=== PATIENT | female | born 1975 | race Caucasian/White ===

== ENCOUNTER 2016-09-17 23:52 | Emergency (ER) | payer OTHER ==
[~2016-09-17] VITALS: Ht 167.6 cm; Wt 105.6 kg
[2016-09-17 23:56] VITALS: TEMP 36.9; Ht 167.6 cm; Wt 105.6 kg
[2016-09-18 00:50] LABS: BASO % 0.1 %; BASO ABS # 0.01 K/uL (0-0.2); COMPLETE YES; EOS % 1.1 %; HEMATOCRIT 39.8 % (37-47); IG% 0.8 %; LYMPH % 24.8 %; LYMPH ABS # 2.62 K/uL (1.2-3.4); MEAN CELL VOLUME 85.2 fL (80-100); MEAN CORPUSCULAR HEMOGLOBIN 29.3 pg (25-34); MEAN CORPUSCULAR HGB CONC 34.4 g/dl (32-36); MEAN PLATELET VOLUME 10.7 fL (7.4-10.4); MONO % 6.2 %; PLATELET COUNT 194 K/uL (130-400); RED BLOOD COUNT 4.67 M/uL (4.2-5.4); WHITE BLOOD COUNT 10.57 K/uL (4.8-10.8)
--- NOTE | 2016-09-18 02:00 | DIAGNOSTIC IMAGING REPORT ---
ULTRASOUND LIMITED CLINICAL HISTORY: Reportedly 14 weeks . Vaginal bleeding. COMPARISON STUDY: No priors. FINDINGS: Real-time, grayscale, and color Doppler sonography of the fetus and gravid uterus is performed. There is a single live uterine gestation with an estimated heart rate of 155 bpm. The crown-rump length measures 7.32 cm, corresponding to an estimated age of 13 weeks 3 days. The cervix is closed and measures at least 3.6 cm in length. The placenta is anterior. There is hypoechoic nonvascular fluid seen along the posterior/inferior margin of the placenta. The largest pocket measures up to 2.3 cm. The amniotic fluid volume is grossly normal. IMPRESSION: 1. There is a single live intrauterine gestation with estimated age of 13 weeks 3 days by crown-rump length measurement. 2. The placenta is anterior. Hypoechoic nonvascular fluid is seen posterior to the placenta, greatest inferiorly and likely represents age indeterminant subchorionic hemorrhage. There is no echogenic blood to suggest acute abruption. Obstetrical assessment and close follow-up is recommended. Electronically signed by: Andres Lo M.D. 09/18/2016 1:59 AM Dictated Date/Time: 09/18/2016 1:45 AM
[2016-09-18 02:22] LABS: BUN/CREATININE RATIO 12.1 (10-20); CALCIUM 8.6 mg/dl (8.5-10.1); CREATININE 0.52 mg/dl (0.60-1.20); POTASSIUM 3.3 mmol/L (3.5-5.1)
[2016-09-18 02:25] LABS: ALB/GLOB RATIO 0.9 (0.9-2)
--- NOTE | 2016-09-18 02:47 | EMERGENCY ROOM VISIT NOTE ---
History First contact with patient: 23:59 Chief Complaint: ED VAG BLEEDING Stated Complaint: BLOOD-14 WKS History of Present Illness The patient is a 40 year old female who presents to the Emergency Room with complaints of vaginal bleeding. The patient states she is currently 14 weeks . She states that 2 hours ago, she went to the bathroom and noticed blood on the toilet paper. She states it was a small amount of bright red blood. She denies any abdominal pain. The patient has sexual intercourse earlier. She currently sees [facility] CAR DISTRIBUTOR. 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 She has had 2 pregnancies to term. She denies any nausea, vomiting, fevers, urinary symptoms, chest pain or shortness of breath. She denies any history of bleeding disorders. Review of Systems A complete 10 point review of systems was reviewed with the patient with pertinent positives and negatives as per history of present illness. All else were negative. Past Medical/Surgical History Medical Problems: (1) Asthma (2) Bronchitis (3) Pneumonia (4) Stomach problems Surgical Problems: (1) History of cholecystectomy (2) Previous section Family History Cancer Diabetes mellitus Gallbladder disease Heart disease Hypertension Lung disease Seizures Social History Smoking Status: Current Every Day Smoker Alcohol Use: occasionally Drug Use: none Marital Status: single Housing Status: lives with family Occupation Status: employed Allergies Coded Allergies: No Known Allergies (Verified , 09/17/16) Physical Exam Vital Signs Date Time Temp Pulse Resp B/P (MAP) Pulse Ox O2 Delivery O2 Flow Rate FiO2 09/18/16 02:49 71 18 99/63 100 09/18/16 02:34 71 18 99/63 100 Room Air 09/17/16 23:56 36.9 72 20 112/74 97 Room Air Physical Exam VITALS: Vitals are noted on the nurse's note and reviewed by myself. Vital signs stable. GENERAL: This is a 40-year-old female, in no acute distress, nondiaphoretic, well-developed well-nourished. HEART: Regular rate and rhythm without murmurs gallops or rubs. LUNGS: Clear to auscultation bilaterally without wheezes, rales or rhonchi. ABDOMEN: Positive bowel sounds x 4. Soft, nontender to palpation. PELVIC: External genitalia unremarkable. There is a small abrasion within the vaginal vault. No bleeding from the cervical os. NEURO: Patient was alert and oriented to person place and time. Medical Decision & Procedures ER Provider Diagnostic Interpretation: ULTRASOUND LIMITED FINDINGS: Real-time, grayscale, and color Doppler sonography of the fetus and gravid uterus is performed. There is a single live uterine gestation with an estimated heart rate of 155 bpm. The crown-rump length measures 7.32 cm, corresponding to an estimated age of 13 weeks 3 days. The cervix is closed and measures at least 3.6 cm in length. The placenta is anterior. There is hypoechoic nonvascular fluid seen along the posterior/inferior margin of the placenta. The largest pocket measures up to 2.3 cm. The amniotic fluid volume is grossly normal. IMPRESSION: 1. There is a single live intrauterine gestation with estimated age of 13 weeks 3 days by crown-rump length measurement. 2. The placenta is anterior. Hypoechoic nonvascular fluid is seen posterior to the placenta, greatest inferiorly and likely represents age indeterminant subchorionic hemorrhage. There is no echogenic blood to suggest acute abruption. Obstetrical assessment and close follow-up is recommended. Electronically signed by: Andres Lo M.D. Laboratory Results 09/18/16 00:38 Red Blood Count 4.67, Mean Corpuscular Volume 85.2, Mean Corpuscular Hemoglobin 29.3, Mean Corpuscular Hemoglobin Concent 34.4, Mean Platelet Volume 10.7, Neutrophils (%) (Auto) 67.0, Lymphocytes (%) (Auto) 24.8, Monocytes (%) (Auto) 6.2, Eosinophils (%) (Auto) 1.1, Basophils (%) (Auto) 0.1, Neutrophils # (Auto) 7.08, Lymphocytes # (Auto) 2.62, Monocytes # (Auto) 0.66, Eosinophils # (Auto) 0.12, Basophils # (Auto) 0.01 09/18/16 01:52 Test 09/18/16 00:38 09/18/16 01:52 White Blood Count 10.57 K/uL (4.8-10.8) Red Blood Count 4.67 M/uL (4.2-5.4) Hemoglobin 13.7 g/dL (12.0-16.0) Hematocrit 39.8 % (37-47) Mean Corpuscular Volume 85.2 fL (80-100) Mean Corpuscular Hemoglobin 29.3 pg (25-34) Mean Corpuscular Hemoglobin Concent 34.4 g/dl (32-36) Platelet Count 194 K/uL (130-400) Mean Platelet Volume 10.7 fL (7.4-10.4) Neutrophils (%) (Auto) 67.0 % Lymphocytes (%) (Auto) 24.8 % Monocytes (%) (Auto) 6.2 % Eosinophils (%) (Auto) 1.1 % Basophils (%) (Auto) 0.1 % Neutrophils # (Auto) 7.08 K/uL (1.4-6.5) Lymphocytes # (Auto) 2.62 K/uL (1.2-3.4) Monocytes # (Auto) 0.66 K/uL (0.11-0.59) Eosinophils # (Auto) 0.12 K/uL (0-0.5) Basophils # (Auto) 0.01 K/uL (0-0.2) RDW Standard Deviation 43.3 fL (36.4-46.3) RDW Coefficient of Variation 14.0 % (11.5-14.5) Immature Granulocyte % (Auto) 0.8 % Immature Granulocyte # (Auto) 0.08 K/uL (0.00-0.02) Anion Gap 7.0 mmol/L (3-11) Est Creatinine Clear Calc Drug Dose 178.4 ml/min Estimated GFR () 139.5 Estimated GFR (Non- 120.4 BUN/Creatinine Ratio 12.1 (10-20) Calcium Level 8.6 mg/dl (8.5-10.1) Total Bilirubin 0.1 mg/dl (0.2-1) Aspartate Amino Transf (AST/SGOT) 11 U/L (15-37) Alanine Aminotransferase (ALT/SGPT) 18 U/L (12-78) Alkaline Phosphatase 52 U/L (45-117) Total Protein 6.4 gm/dl (6.4-8.2) Albumin 3.0 gm/dl (3.4-5.0) Globulin 3.4 gm/dl (2.5-4.0) Albumin/Globulin Ratio 0.9 (0.9-2) Human Chorionic Gonadotropin, Quant 38126 mIU/mL ED Course The patient was evaluated as above. Labs were drawn and IV access was obtained. Pelvic ultrasound was performed and read by radiology as above. Patient was reevaluated and findings were discussed. Pelvic examination performed at this time. Discharge instructions were reviewed with the patient. The patient verbalized understanding of my assessment and treatment plan and was discharged home in good condition. Medical Decision Differential diagnosis includes vaginal abrasion, spontaneous miscarriage, inevitable miscarriage, placental abruption, among others. The patient is a 40-year-old female who presents today complaining of vaginal bleeding during . Labs revealed a minimal leukocytosis. There is no anemia. Pelvic ultrasound was performed and showed a viable intrauterine with heartbeat. There were findings which are suggestive of an indeterminate subchorionic hemorrhage. There is no significant bleeding or pain to suggest placental abruption. A pelvic ultrasound does show a small vaginal abrasion which is likely the source of the patient's bleeding. She was reassured. She will follow-up with her CAR DISTRIBUTOR this week. She was instructed to return for increased bleeding, pain or any other new/concerning symptoms. The patient's case was reviewed with Dr. Patterson, ED attending physician, who agreed with my assessment and treatment plan. Based on the patient's presentation and work up, I feel the patient is stable for outpatient treatment. The patient was educated to return to the emergency department for any worsening of their current condition or new/concerning symptoms. She will follow up with her CAR DISTRIBUTOR. Medication reconciliation: I attest that I have personally reviewed the patient 's current medication list. Blood pressure screening: Patient was found to have normal blood pressure on screening and does not require follow-up. Impression Primary Impression: Vaginal bleeding in Departure Information Dispostion Home / Self-Care Condition GOOD Referrals Conchita Preciado (PCP) Patient Instructions My [facility] Additional Instructions Pelvic rest: Nothing in the vagina until follow up with CAR DISTRIBUTOR. Call CAR DISTRIBUTOR on Monday to schedule follow-up. Return for worsening bleeding, abdominal pain, vomiting or any other new/ worsening symptoms.
[2016-09-18 02:49] VITALS: BP 99/63; PULSE 71; O2SAT 100
[2016-12-04] MEDS ORDERED: PRENTAB26 PO (13:12)
[2016-12-04] MEDS ORDERED: MTR250 PO (13:12)
== END 2016-09-18 02:50 | disposition home or self-care (01) ==
LOC: C.EDB 23:53
DX: O20.9 Hemorrhage in early pregnancy, unspecified (principal); O99.332 Smoking (tobacco) complicating pregnancy, second trimester; F17.210 Nicotine dependence, cigarettes, uncomplicated; O99.512 Diseases of the respiratory system complicating pregnancy, second trimester; J45.909 Unspecified asthma, uncomplicated; Z3A.14 14 weeks gestation of pregnancy; Z87.01 Personal history of pneumonia (recurrent); Z90.49 Acquired absence of other specified parts of digestive tract; Z80.9 Family history of malignant neoplasm, unspecified; Z83.3 Family history of diabetes mellitus; Z82.49 Family history of ischemic heart disease and other diseases of the circulatory system; Z82.0 Family history of epilepsy and other diseases of the nervous system

== ENCOUNTER 2016-12-04 10:16 | Outpatient (CLI) | payer OTHER ==
[~2016-12-04] VITALS: Ht 167.6 cm; Wt 104.5 kg
[2016-12-04] MEDS ORDERED: ACETAMINOPHEN 325 MG TAB PO PRN (10:45)
[2016-12-04] MEDS ORDERED: ONDANSETRON 4 MG TAB PO PRN (10:45)
[2016-12-04 11:26] LABS: BASO % 0.1 %; BASO ABS # 0.01 K/uL (0-0.2); COMPLETE YES; EOS % 0.9 %; HEMATOCRIT 35.2 % (37-47); LYMPH % 16.3 %; LYMPH ABS # 1.77 K/uL (1.2-3.4); MEAN CELL VOLUME 88.7 fL (80-100); MEAN CORPUSCULAR HEMOGLOBIN 29.5 pg (25-34); MEAN CORPUSCULAR HGB CONC 33.2 g/dl (32-36); MEAN PLATELET VOLUME 10.4 fL (7.4-10.4); MONO % 5.2 %; NEUT % 76.5 %; PLATELET COUNT 192 K/uL (130-400); RED BLOOD COUNT 3.97 M/uL (4.2-5.4); WHITE BLOOD COUNT 10.87 K/uL (4.8-10.8)
[2016-12-04 11:37] LABS: URINE APPEARANCE CLEAR (CLEAR); URINE BILIRUBIN NEG (NEG); URINE COLOR YELLOW; URINE EPITHELIAL CELL AUTO >30 /lpf (0-5); URINE NITRITE NEG (NEG); URINE PH 6.5 (4.5-7.5); URINE SPECIFIC GRAVITY 1.014 (1.000-1.030); UROBILINOGEN NEG (NEG); ZZUR CULT IF INDIC CLEAN CATCH NO
[2016-12-04 11:38] LABS: MANUAL MICROSCOPIC REQUIRED? NO; REVIEW REQ? NO
--- NOTE | 2016-12-04 11:40 | DIAGNOSTIC IMAGING REPORT ---
LIMITED (US) CLINICAL HISTORY: CERVICAL LENGTH, JODY, FHR TECHNIQUE: Ultrasound COMPARISON STUDY: 09/18/2016 FINDINGS: Single, viable intrauterine . Cephalic presentation. Anterior placenta. Amniotic fluid index is 15 cm. Maternal cervical length is 4 cm. heart rate is confirmed at 1 61 bpm. The fluid deep to the placenta on the prior study is no longer appreciated. IMPRESSION: 1. Single, viable intrauterine of approximately 24 weeks 6 days gestational age. 2. Anterior placenta. 3. Maternal cervical length 4 cm. 4. Amniotic fluid index 15 cm. 5. heart rate 161 bpm The above report was generated using voice recognition software. It may contain grammatical, syntax or spelling errors. Electronically signed by: Alek Champagne M.D. 12/04/2016 11:39 AM Dictated Date/Time: 12/04/2016 11:37 AM
[2016-12-04 11:53] VITALS: Ht 167.6 cm; Wt 104.5 kg
[2016-12-04 11:53] LABS: ALT/SGPT 15 U/L (12-78); BLOOD UREA NITROGEN 3 mg/dl (7-18); BUN/CREATININE RATIO 6.3 (10-20); CALCIUM 9.1 mg/dl (8.5-10.1); CARBON DIOXIDE 19 mmol/L (21-32); CHLORIDE 108 mmol/L (98-107); CREATININE 0.54 mg/dl (0.60-1.20); GLUCOSE 103 mg/dl (70-99); POTASSIUM 3.6 mmol/L (3.5-5.1); SODIUM 139 mmol/L (136-145)
[2016-12-04 11:56] LABS: ALB/GLOB RATIO 0.8 (0.9-2); ALKALINE PHOSPHATASE 71 U/L (45-117); AST/SGOT 11 U/L (15-37)
[2016-12-04] MEDS ORDERED: METRONIDAZOLE 250 MG TAB PO SCH ×2 (12:00→13:30)
[2016-12-04] MEDS ORDERED: PRENTAB26 PO (13:12)
[2016-12-04] MEDS ORDERED: MTR250 PO (13:12)
--- NOTE | 2016-12-04 13:15 | Discharge Instructions ---
Discharge Instructions Date of Service Dec 04, 2016. Admission Reason for Admission: Evaluate Vaginal Discharge Discharge Discharge Diagnosis / Problem: BV Discharge Goals Goal(s): Continuing OB care Activity Recommendations Activity Limitations: as noted below ACTIVITY RECOMMENDATIONS: See Labor Sheet. SPECIAL CARE INSTRUCTIONS: Call Doctor if: * Regular contractions every 5 minutes or greater than 5 contractions in one hour. * Bleeding * Water breaks or is leaking * Decreased movement * Fever >100.4 degrees F * Pain not relieved by routine measures or pain medication ordered. FOLLOW UP VISIT: Return to Labor and Delivery on for /call for appointment time . Follow-up Visit with: When: . Current Hospital Diet Patient's current hospital diet: Clear Liquid Diet Discharge Diet Recommended Diet: Regular Diet Pending Studies Studies pending at discharge: yes List of pending studies: Cultures Medical Emergencies . Who to Call and When: Medical Emergencies: If at any time you feel your situation is an emergency, please call 911 immediately. . Non-Emergent Contact Non-Emergency issues call your: Specialist Call Non-Emergent contact if: temperature is above 100.5 . . "Provider Documentation" section prepared by Ray Fish. . VTE Core Measure Inpt VTE Proph given/why not?: Treatment not indicated
[2016-12-04] MEDS ORDERED: ACETAMINOPHEN 325 MG TAB PO SCH ×2 (13:30)
[2016-12-07 00:52] LABS: CHLAMYDIA TRACH RNA*** NOT DETECTED (NOT DETECTED); GC (NEIS GONORRHOEAE)RNA** NOT DETECTED (NOT DETECTED)
== END 2016-12-04 13:50 | disposition home or self-care (01) ==
LOC: C.LD 10:16 → C.OPB 10:16
PROVIDERS: ATTEND Obstetrics & Gynecology
DX: O26.893 Other specified pregnancy related conditions, third trimester (principal); N89.8 Other specified noninflammatory disorders of vagina; O09.523 Supervision of elderly multigravida, third trimester; O99.213 Obesity complicating pregnancy, third trimester; O99.332 Smoking (tobacco) complicating pregnancy, second trimester; Z3A.24 24 weeks gestation of pregnancy

== ENCOUNTER 2017-03-14 05:28 | Inpatient (IN) | payer OTHER ==
[2017-03-01 13:47] VITALS: Ht 167.6 cm; Wt 117.2 kg
--- NOTE | 2017-03-01 14:08 | PAT Medication Instructions ---
Service Date Mar 01, 2017. Current Home Medication List Multivit/Min/Iron/Fol Ac/Pren ( Vitamin), 1 TAB PO DAILY Medication Instructions For Your Scheduled Surgery - Hold the following medications the morning of surgery: Multivit/Min/Iron/Fol Ac/Pren ( Vitamin), 1 TAB PO DAILY If you have any questions please call us at [phone] or [phone] or [phone]
[2017-03-01 15:23] LABS: BASO % 0.1 %; BASO ABS # 0.01 K/uL (0-0.2); EOS % 1.1 %; EOS ABS # 0.12 K/uL (0-0.5); HEMATOCRIT 36.4 % (37-47); IG# 0.12 K/uL (0.00-0.02); LYMPH % 17.7 %; LYMPH ABS # 1.88 K/uL (1.2-3.4); MEAN CELL VOLUME 87.3 fL (80-100); MEAN CORPUSCULAR HEMOGLOBIN 28.8 pg (25-34); MEAN PLATELET VOLUME 10.4 fL (7.4-10.4); MONO % 7.9 %; MONO ABS # 0.84 K/uL (0.11-0.59); NEUT % 72.1 %; NEUT ABS # 7.65 K/uL (1.4-6.5); PLATELET COUNT 190 K/uL (130-400); RED CELL DISTRIBUTION WIDTH SD 47.3 fL (36.4-46.3); WHITE BLOOD COUNT 10.62 K/uL (4.8-10.8)
[2017-03-14] VITALS (15 sets, daily range): BP systolic 86–119; BP diastolic 54–74; PULSE 69–77; TEMP 36.7–37.5; O2SAT 94–98
[~2017-03-14] VITALS: Ht 167.6 cm; Wt 117.2 kg
[~2017-03-14 05:28] MED LIST: PRENTAB26 PO
[2017-03-14] MEDS ORDERED: NURSING VERBAL MED ORDER ONE (05:45)
[2017-03-14 05:58] LABS: BASO % 0.1 %; BASO ABS # 0.01 K/uL (0-0.2); EOS % 0.8 %; EOS ABS # 0.09 K/uL (0-0.5); HEMATOCRIT 37.1 % (37-47); HEMOGLOBIN 12.5 g/dL (12.0-16.0); IG# 0.11 K/uL (0.00-0.02); LYMPH ABS # 1.62 K/uL (1.2-3.4); MEAN CELL VOLUME 87.3 fL (80-100); MEAN CORPUSCULAR HEMOGLOBIN 29.4 pg (25-34); MEAN CORPUSCULAR HGB CONC 33.7 g/dl (32-36); MEAN PLATELET VOLUME 10.2 fL (7.4-10.4); MONO % 4.4 %; MONO ABS # 0.48 K/uL (0.11-0.59); NEUT % 78.7 %; NEUT ABS # 8.52 K/uL (1.4-6.5); PLATELET COUNT 184 K/uL (130-400); RED CELL DISTRIBUTION WIDTH CV 15.4 % (11.5-14.5); WHITE BLOOD COUNT 10.83 K/uL (4.8-10.8)
[2017-03-14] MEDS ORDERED: CEFAZOLIN IV 3,000 MG in SYRINGE 0 ML IV STA (06:08)
[2017-03-14] MEDS ORDERED: CITRIC ACID/SODIUM CITRATE 15 ML UDC PO STA (06:08)
[2017-03-14] MEDS ORDERED: LACTATED RINGER'S 1000ML 1,000 ML IV SCH ×2 (06:15→09:11)
[2017-03-14] MEDS ORDERED: LACTATED RINGER'S 1000ML 1,000 ML IV ONE (06:15)
--- NOTE | 2017-03-14 07:04 | History & Physical Bridge Note ---
H&P Re-Evaluation Bridge Note: I have examined the patient, reviewed the History & Physical and in the interval since the performance of the History & Physical I have noted the following changes of clinical significance: No changes noted
[2017-03-14] MEDS ORDERED: FENTANYL CITRATE INJ 50 MCG/1 ML 2 ML VIAL ONE (07:22)
[2017-03-14] MEDS ORDERED: MORPHINE SULFATE PF 2MG/2ML SYR ONE (07:23)
[2017-03-14] MEDS ORDERED: OXYTOCIN INJ 10 UNITS/ML VIAL ONE ×2 (08:12→09:12)
[2017-03-14] MEDS ORDERED: PHENYLEPHRINE 100MCG/ML 5ML SYR ONE (08:16)
[2017-03-14] MEDS ORDERED: MIDAZOLAM HCL 1 MG/ML 2ML VIAL ONE (08:31)
[2017-03-14] MEDS ORDERED: OXYTOCIN INJ 30 UNITS in LACTATED RINGER'S 1000ML 1,000 ML IV SCH (09:11)
[2017-03-14] MEDS ORDERED: SUPERCREAM 0.870 % 15GM JAR EXT PRN (09:15)
[2017-03-14] MEDS ORDERED: MAGNESIUM HYDROXIDE SUSP 30 ML UDC PO PRN (09:15)
[2017-03-14] MEDS ORDERED: DIPHTHERIA/TETANUS/PERTUSSIS 0.5 ML SYR/VIAL IM. ONE (09:15)
[2017-03-14] MEDS ORDERED: BENZOCAINE 20% AER SPR 82.5 GM CAN EXT PRN (09:15)
[2017-03-14] MEDS ORDERED: HYDROCORTISONE ACETATE 25 MG SUPP PR PRN (09:15)
[2017-03-14] MEDS ORDERED: LANOLIN OINT EXT PRN (09:15)
[2017-03-14] MEDS ORDERED: SENNA 8.6 MG TAB PO PRN (09:15)
[2017-03-14] MEDS ORDERED: NALOXONE HCL INJ 1 MG in SODIUM CHLORIDE 0.9% 1000ML 1,000 ML IV PRN ×4 (09:21)
[2017-03-14] MEDS ORDERED: LACTATED RINGER'S 1000ML 500 ML IV PRN (09:21)
[2017-03-14] MEDS ORDERED: SODIUM CHLORIDE 0.9% 1000ML 1,000 ML IV PRN (09:21)
[2017-03-14] MEDS ORDERED: NALOXONE HCL INJ 0.08 MG in SYRINGE 1.8 ML IV PRN (09:21)
--- NOTE | 2017-03-14 09:26 | [facility] Post Operative Brief Note ---
Immediate Operative Summary Operative Date Mar 14, 2017. Pre-Operative Diagnosis 39 2/7 Weeks Gestation. Previous Caesarean Section. Pt desires Repeat Caesarean Section and Bilateral Tubal Ligation. Post-Operative Diagnosis Same as Preop Procedure(s) Performed Repeat Low Transverse Section with Bilateral Tubal Ligation, Live Female at [address] Reyes [employer] Drill Operator Surgeon(s) Dr. Borja Estimated Blood Loss 700 Findings Patient delivered a viable female in the vertex position via Repeat section at 0821 on 03/14/2017. APGARs and weight pending. Cord blood obtained. An intact placenta with 3 VC delivered at 0822 and sent to pathology. Grossly normal uterus and bilateral tubes and ovaries noted. Bilateral tubal ligation was performed via rhonda technique. Bilateral tubal segments sent to pathology. Both patient and baby tolerated the surgery well and were sent to recovery with stable vital signs. Fluids (cc crystalloids) 1600 Specimens Cord Blood Placenta (Exam) Portions of Left and Right Fallopian Tubes Drains Iqbal to gravity Anesthesia Spinal Complication(s) None Disposition L&D
[2017-03-14] MEDS ORDERED: EpHEDrine SULFATE INJ 50 MG/ML AMP IV PRN (09:30)
[2017-03-14] MEDS ORDERED: NALBUPHINE HCL INJ 10 MG/ML 1ML AMP IV PRN (09:30)
[2017-03-14] MEDS ORDERED: MoRPHine SULFATE PF 1 MG/ML 10 ML AMP/VIAL EPI PRN (09:30)
[2017-03-14] MEDS ORDERED: ONDANSETRON INJ 2 MG/ML 2 ML VIAL IV PRN (09:30)
[2017-03-14] MEDS ORDERED: DiphenhydrAMINE HCL 50 MG/ML VIAL IV PRN (09:30)
[2017-03-14] MEDS ORDERED: NO NARCOTICS OR SEDATIVES SCH (09:30)
[2017-03-14] MEDS ORDERED: PROMETHAZINE HCL INJ 25 MG in SODIUM CHLORIDE 0.9% 50ML 50 ML IV PRN (09:30)
[2017-03-14] MEDS ORDERED: NALOXONE HCL 0.4 MG/1 ML VIAL/CARP IV PRN (09:30)
--- NOTE | 2017-03-14 10:15 | OPERATIVE REPORT ---
DATE OF OPERATION: 03/14/2017 PREOPERATIVE DIAGNOSES: 1. Intrauterine at 39 weeks and 2 days gestation. 2. History of previous section, requesting repeat section. 3. Desires permanent sterilization. POSTOPERATIVE DIAGNOSES: Same. OPERATIVE PROCEDURES: Repeat low transverse section with bilateral tubal ligation. SURGEON: Dr. Reyes. SETUP OPERATOR: Dr. Fish. ANESTHESIA: Spinal. ESTIMATED BLOOD LOSS: 700 mL. IV FLUIDS: 1600 mL crystalloids. URINE OUTPUT: 350 mL clear yellow urine. SPECIMENS: Cord blood, placenta and segments of the left and right fallopian tubes. DRAINS: Iqbal to gravity. COMPLICATIONS: None. DISPOSITION: To labor and delivery. OPERATION AND FINDINGS: OPERATIVE FINDINGS: The patient delivered a viable female infant in the vertex position via repeat low transverse section at 8:21 a.m. on 03/14/2017. Apgars and weight are pending. Cord blood was obtained and intact placenta with 3-vessel cord was delivered at 8:22 and sent to pathology. Grossly normal uterus and bilateral tubes and ovaries noted. Bilateral tubal ligation was performed via Yane technique. Bilateral tubal segments were sent to pathology. Both patient and baby tolerated the surgery well and were sent to recovery with stable vital signs. OPERATIVE PROCEDURE IN DETAIL: The patient was taken to the operating room where her spinal anesthesia was administered. She was immediately placed in dorsal supine position with a left lateral tilt and was prepped and draped in a manner appropriate for the procedure. Once anesthesia was found to be adequate, a Pfannenstiel skin incision was made 2 fingerbreadths above the pubic symphysis and was carried down through to a layer of the rectus fascia. Fascia was nicked in the midline and extended bilaterally with curved Hernández scissors. The superior aspect of the fascial incision was grasped with Celi clamps, elevated, and the rectus muscles were dissected off with the use of the electrocautery and curved Hernández scissors. Likewise, the inferior aspect of the fascial incision was grasped with Celi clamps, elevated, and rectus muscles were dissected off with the use of the curved Hernández scissors. The rectus muscles were in midline. Peritoneum was grasped with hemostats x2 and entered with Metzenbaum scissors. Peritoneal incision was extended cephalocaudally with gentle traction. A Joan retractor was then placed within the abdomen. The vesicouterine peritoneum was identified and a bladder flap was created with Metzenbaum scissors and digital traction. The bladder flap was incorporated beneath the Kolton blade. A transverse incision was then made on the uterus and extended bilaterally with digital traction. Clear amniotic fluid was noted. The head was identified and delivered through the incision along with the rest of the baby. Baby was suctioned at delivery. Cord was clamped x2 and cut. Baby was immediately handed to an awaiting obiee obia solution architect for further evaluation and management. Please see their notes for further baby assessment. Cord blood was then obtained and an intact placenta with 3-vessel cord was delivered through the incision and sent to pathology. The uterus was then exteriorized and wrapped in moist laparotomy sponge. The uterus was then cleared of any trailing membranes and debris with laparotomy sponge. The uterine incision was then grasped with ringed forceps at 4 quadrants, was then closed with 0 Vicryl suture in a continuous locking fashion. A second layer of 0 Vicryl suture was used in imbricating fashion to ensure hemostasis. Any residual bleeding was suture-ligated with 0 Vicryl suture in a [id number] interrupted fashion. Excellent hemostasis was noted at the incision. Attention was then directed towards the right fallopian tube which was followed out to its fimbriated end, grasped at midpoint with a Thaxton clamp and was ligated via Clifton technique. The tubal segment was then removed with the Metzenbaum scissors and sent to pathology. The tubal stumps were then cauterized with electrocautery. Attention was then directed towards the left fallopian tube which was followed out to its fimbriated end, grasped in the mid plane with a Thaxton clamp and was double suture ligated via Clifton technique. The tubal segment was then removed with Metzenbaum scissors and sent to pathology. The tubal stumps were then cauterized with electrocautery. The uterus was then placed back within its normal anatomic position within the abdomen. Attention to the uterine incision was noted to be hemostatic. The anterior cul-de-sac was then irrigated with warm saline solution. Again, hemostasis was noted. At this point, all instruments were removed from the abdomen along with the Sharif retractor. The peritoneum was then grasped with Serene clamps at 4 quadrants was then closed with 2-0 Vicryl suture in continuous running fashion. The rectus fascia was then reapproximated with 0 Vicryl suture in continuous running fashion. The incision was then irrigated with warm saline solution. The subcutaneous tissue was reapproximated with 2-0 Vicryl suture in a continuous running fashion. Skin was then closed with zari. Excellent hemostasis was noted through all tissue layers. All sponge, instrument and needle counts were found to be correct x2. Both patient and baby tolerated the surgery well and were sent to recovery with stable vital signs. I attest to the content of the Intraoperative Record and any orders documented therein. Any exception s are noted below.
--- NOTE | 2017-03-14 11:18 | Anesthesiology Progress Note ---
Anesthesia Post Op Note Date & Time Mar 14, 2017 at 11:18 Notes Mental Status: alert / awake / arousable, participated in evaluation Pt Amnestic to Procedure: No Nausea / Vomiting: adequately controlled Pain: adequately controlled Airway Patency, RR, SpO2: stable & adequate BP & HR: stable & adequate Hydration State: stable & adequate Neuraxial Anesthesia: was administered, sensory block is resolving Anesthetic Complications: no major complications apparent
[2017-03-14] MEDS: SIMETHICONE 80 MG CHEW PO SCH ×3 (12:54→19:49)
[2017-03-14] MEDS: KETOROLAC TROMETHAMINE 30 MG/ML VIAL IV. PRN ×2 (13:07→19:52)
--- NOTE | 2017-03-14 16:15 | NUR ---
Called pharmacy to get [facility] for pt. They stated they would send it up now.
[2017-03-14] MEDS: CEFAZOLIN IV 1,000 MG in SYRINGE 0 ML IV SCH (16:39)
[2017-03-14] MEDS: DOCUSATE SODIUM 100 MG CAP PO SCH (19:49)
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
[2017-03-15] VITALS (9 sets, daily range): BP systolic 87–105; BP diastolic 54–69; PULSE 74–90; TEMP 36.8–37.5; O2SAT 95–98
[2017-03-15] MEDS: CEFAZOLIN IV 1,000 MG in SYRINGE 0 ML IV SCH ×2 (00:08→08:28)
[2017-03-15] MEDS ORDERED: OXYCODONE/ACETAMINOPHEN 5-325 TAB PO PRN (02:00)
[2017-03-15] MEDS ORDERED: MEPERIDINE HCL 50 MG/ML CARP IV PRN ×2 (02:00)
[2017-03-15] MEDS ORDERED: DC INTRASPINAL MORPHINE SCH (02:00)
[2017-03-15] MEDS ORDERED: ONDANSETRON INJ 2 MG/ML 2 ML VIAL IV PRN (02:00)
[2017-03-15] MEDS ORDERED: KETOROLAC TROMETHAMINE 30 MG/ML VIAL IV. PRN (02:01)
[2017-03-15] MEDS: OXYCODONE/ACETAMINOPHEN 5-325 TAB PO PRN ×4 (06:23→23:57)
[2017-03-15] MEDS: IBUPROFEN 600 MG TAB PO PRN ×4 (06:24→23:56)
[2017-03-15 06:32] LABS: BASO % 0.1 %; BASO ABS # 0.02 K/uL (0-0.2); EOS % 0.6 %; EOS ABS # 0.09 K/uL (0-0.5); HEMATOCRIT 33.4 % (37-47); IG# 0.11 K/uL (0.00-0.02); LYMPH % 12.5 %; LYMPH ABS # 1.77 K/uL (1.2-3.4); MEAN CELL VOLUME 87.9 fL (80-100); MEAN CORPUSCULAR HEMOGLOBIN 28.9 pg (25-34); MEAN CORPUSCULAR HGB CONC 32.9 g/dl (32-36); MEAN PLATELET VOLUME 10.7 fL (7.4-10.4); MONO % 7.2 %; MONO ABS # 1.02 K/uL (0.11-0.59); NEUT % 78.8 %; PLATELET COUNT 177 K/uL (130-400); RED CELL DISTRIBUTION WIDTH CV 15.5 % (11.5-14.5); RED CELL DISTRIBUTION WIDTH SD 49.9 fL (36.4-46.3); WHITE BLOOD COUNT 14.11 K/uL (4.8-10.8)
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
[2017-03-15] MEDS: DOCUSATE SODIUM 100 MG CAP PO SCH ×2 (08:28→23:58)
[2017-03-15] MEDS: PRENATAL VITAMIN TAB PO SCH (08:28)
[2017-03-15] MEDS: FERROUS SULFATE 325 MG TAB PO SCH (08:28)
[2017-03-15] MEDS: SIMETHICONE 80 MG CHEW PO SCH ×4 (08:28→23:58)
--- NOTE | 2017-03-15 08:30 | NUR ---
Pump provided to patient. Instructed patient on use of pump and how to clean pump after each use. For the first pumping, patient only got drops. Encouraged patient that this is okay and she will get more as time goes on.
--- NOTE | 2017-03-15 10:06 | Surgery Progress Note ---
Surgery Progress Note Date of Service Mar 15, 2017. Subjective Post OP Day: 1 + feeling well, + ambulating, + flatus, + pain controlled, + diet Objective Vital Signs: Date Time Temp Pulse Resp B/P (MAP) Pulse Ox O2 Delivery O2 Flow Rate FiO2 03/15/17 08:02 37.0 83 14 93/64 (74) 96 Room Air 03/15/17 07:40 98 Room Air 03/15/17 03:40 37.2 74 16 92/62 (72) 96 Room Air 03/15/17 02:00 16 96 03/15/17 01:00 18 97 03/15/17 00:20 37.5 80 20 87/54 (65) 95 Room Air 03/15/17 00:20 95 Room Air 03/15/17 00:00 20 95 03/14/17 23:00 20 97 03/14/17 22:00 18 97 03/14/17 21:00 18 98 03/14/17 20:00 18 98 03/14/17 19:30 Room Air 03/14/17 19:30 37.5 77 18 93/56 (68) 96 Room Air 03/14/17 19:30 18 96 03/14/17 19:00 18 96 03/14/17 18:50 18 96 03/14/17 17:50 18 94 03/14/17 16:50 18 95 03/14/17 15:50 16 97 03/14/17 15:35 98 Room Air 03/14/17 15:23 37.3 70 20 86/54 (65) 95 Room Air 03/14/17 14:50 16 97 03/14/17 13:50 69 16 96/63 (74) 97 Room Air 03/14/17 13:50 16 97 03/14/17 12:50 36.7 71 16 119/74 (89) 95 Room Air 03/14/17 12:50 95 Room Air 03/14/17 12:50 16 95 03/14/17 12:50 95 Room Air Abdomen: non tender, non distended, soft Incision(s): clean, dry, intact Extremities: non-tender, normal inspection, no pedal edema, no calf tenderness Laboratory Results: Results Past 24 Hours Test 03/15/17 06:10 Range/Units White Blood Count 14.11 4.8-10.8 K/uL Red Blood Count 3.80 4.2-5.4 M/uL Hemoglobin 11.0 12.0-16.0 g/dL Hematocrit 33.4 37-47 % Mean Corpuscular Volume 87.9 80-100 fL Mean Corpuscular Hemoglobin 28.9 25-34 pg Mean Corpuscular Hemoglobin Concent 32.9 32-36 g/dl Platelet Count 177 130-400 K/uL Mean Platelet Volume 10.7 7.4-10.4 fL Neutrophils (%) (Auto) 78.8 % Lymphocytes (%) (Auto) 12.5 % Monocytes (%) (Auto) 7.2 % Eosinophils (%) (Auto) 0.6 % Basophils (%) (Auto) 0.1 % Neutrophils # (Auto) 11.10 1.4-6.5 K/uL Lymphocytes # (Auto) 1.77 1.2-3.4 K/uL Monocytes # (Auto) 1.02 0.11-0.59 K/uL Eosinophils # (Auto) 0.09 0-0.5 K/uL Basophils # (Auto) 0.02 0-0.2 K/uL RDW Standard Deviation 49.9 36.4-46.3 fL RDW Coefficient of Variation 15.5 11.5-14.5 % Immature Granulocyte % (Auto) 0.8 % Immature Granulocyte # (Auto) 0.11 0.00-0.02 K/uL Assessment & Plan POD#1 repeat regular diet ambulate
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
[2017-03-15] MEDS ORDERED: BISACODYL 5 MG TABEC PO ONE (22:00)
[2017-03-16] VITALS: BP 118/69; PULSE 97; TEMP 37; O2SAT 97
[2017-03-16] MEDS: IBUPROFEN 600 MG TAB PO PRN ×3 (05:18→17:33)
[2017-03-16] MEDS: OXYCODONE/ACETAMINOPHEN 5-325 TAB PO PRN ×4 (05:18→17:34)
[2017-03-16 06:42] LABS: HEMATOCRIT 32.3 % (37-47); HEMOGLOBIN 10.5 g/dL (12.0-16.0)
[2017-03-16 08:30] VITALS: BP 90/63; PULSE 91; TEMP 37; O2SAT 98
--- NOTE | 2017-03-16 08:33 | Surgery Progress Note ---
Surgery Progress Note Date of Service Mar 16, 2017. Subjective Post OP Day: 2 + diet (Tolerating PO food and meds), No complaints, No chest pain, No pain controlled Objective Vital Signs: Date Time Temp Pulse Resp B/P (MAP) Pulse Ox O2 Delivery O2 Flow Rate FiO2 03/16/17 00:00 37.0 97 19 118/69 (85) Room Air 03/16/17 00:00 97 Room Air 03/15/17 15:30 37.2 90 20 105/69 (81) Room Air 03/15/17 15:30 Room Air 03/15/17 11:56 36.8 89 15 100/67 (78) 97 Room Air General Appearance: WD/WN, no apparent distress Head: normocephalic, atraumatic Neck: supple, no adenopathy, thyroid normal, no JVD, no carotid bruits, trachea midline Respiratory/Chest: chest non-tender, lungs clear, normal breath sounds, no respiratory distress, no accessory muscle use Cardiovascular: regular rate, rhythm, no edema, no gallop, no JVD, no murmur Abdomen: normal bowel sounds, non tender, non distended, soft, no organomegaly , no pulsatile mass Incision(s): clean, dry, intact, no erythema, no drainage Extremities: normal range of motion, non-tender, normal inspection, no pedal edema, no calf tenderness, normal capillary refill, pelvis stable Laboratory Results: Results Past 24 Hours Test 03/16/17 06:01 Range/Units Hemoglobin 10.5 12.0-16.0 g/dL Hematocrit 32.3 37-47 % Assessment & Plan POD #2 pt doing well pt wishes to go home this evening disch home with instruction
[2017-03-16] MEDS ORDERED: CLC100 PO (08:35)
[2017-03-16] MEDS ORDERED: FRRS300 PO (08:35)
[2017-03-16] MEDS ORDERED: OXYC-57 PO (08:35)
[2017-03-16] MEDS ORDERED: MTR600X PO (08:35)
--- NOTE | 2017-03-16 08:36 | Discharge Instructions ---
Discharge Instructions Date of Service Mar 16, 2017. Admission Reason for Admission: Previous Delivery, Desires Sterilization Discharge Discharge Diagnosis / Problem: c/sec Discharge Goals Goal(s): Routine recovery after surgery Activity Recommendations Activity Limitations: as noted below ACTIVITY RECOMMENDATIONS: * Gradual return to full activity over the next 2-3 weeks. * No lifting - nothing heavier than baby over the next 2-3 weeks. * Do not engage in vigorous exercise, sexual activity or sports until cleared by your physician. * Do not drive or operate any motorized equipment until cleared by your physician. * You may shower/bathe daily. BREAST CARE: If you are not breast feeding: * Wear a supportive bra 24 hours a day for one to two weeks. * Avoid stimulating your breasts and nipples as much as possible during the first few weeks after delivery. * When taking a shower, have the warm water hit your back, not breasts. * When your breasts feel full, apply ice packs. Usually three to four times a day helps ease the discomfort. * Take a mild pain medication (Tylenol/Motrin) when you are uncomfortable. If breast feeding: * Use breast milk to lubricate nipples. Lansinoh cream may be used for sore nipples. You do not need to remove cream prior to breast feeding. If using a different brand of cream, check the label for directions regarding removal of cream prior to nursing. * Wear a supportive bra. * If having problems with breasts or breast feeding, call a application consultant or your health care provider. OVER THE COUNTER MEDICATION: * For discomfort or pain, you may use Acetaminophen (Tylenol), Ibuprofen (Advil ), or Naproxen (Aleve) following the package directions. * For constipation you may use Colace following the package directions. SPECIAL CARE INSTRUCTIONS: When you are discharged from the hospital, it is important for you to follow the instructions listed below: * During the first week at home, you should be able to care for yourself and your baby. In addition, the usual light household activities are encouraged. * Limit your activities to the way you feel. Do not try to clean the house or move furniture. Be sensible. * If you actively engage in sports and have done so up until the time of your delivery, you may resume these activities as soon as you feel able. This may take up to one month or even longer. Use good judgment. * Continue to take your vitamins for at least six weeks after the of your baby. * Your diet need not be limited unless you were on a special diet before your delivery. Breast-feeding mothers need around 2500 calories per day and at least 64-80 ounces of fluid per day (8 to 10 glasses). * You should eat foods from the four major food groups. Crash diets or fad diets are to be avoided. Eating lean meats, fresh fruits and vegetables, low-fat dairy products, high fiber foods and a regular exercise program, will help you get back to your pre- weight without putting your health at risk. * Constipation is sometimes a problem after delivery. Take a mild laxative as needed. If breast feeding, Milk of Magnesia is acceptable to use. You may use a suppository or Fleets enema if no episiotomy. * A daily shower or tub bath is suggested. Be sure to thoroughly and gently dry the perineum. * A bloody vaginal discharge will usually continue until around four weeks post . A small amount of bleeding may continue for as long as six weeks. Vaginal discharge changes from the bright red bleeding after delivery to pink then brownish and finally yellowish-pink before becoming white and disappearing. * Bleeding may increase with activity. Your first period may come in 4-8 weeks. If you are breast feeding, your period may be delayed even longer. * [place] (sex) can begin whenever both you and your partner feel comfortable and do not have any form of genital infection. It is recommended that you wait at least six weeks for internal and external healing to occur. If you have questions, please talk to your health care practitioner. A condom should be used to prevent infection and . * Foreplay, gentle intercourse and lubrication is very important the first several times to prevent pain. A water-based lubricant such as K-Y jelly or Astroglide may be used. * Tampons and/or Douching should be avoided until after six weeks check-up. * If you have RH negative blood and your baby is RH positive, you will receive RHOGAM by injection prior to discharge. The nurse will give you a card to keep with you that has the date and place that you received RHOGAM after delivery. * During your care, you had a Rubella screen done to check for the presence of rubella antibodies in your blood. If your test was negative, you will receive a Rubella vaccine prior to discharge. This vaccine may cause a fever, soreness at the injection site and flu-like symptoms. If these symptoms persist, notify your health care practitioner. is not advised for three months after a Rubella vaccine. * Verbalizes understanding of car seat law as reviewed with patient nursing. * Car Seat hand-out given and reviewed with patient by nursing. * Shaken baby information reviewed with patient by nursing. Call you doctor if: * Heavy bleeding (saturating several pads an hour) or passing clots the size of your fist. * A fever >101 degrees F (38.3 degrees C) on two occasions four hours apart and /or chills. * Unusual pain in the pelvic or vaginal areas. Pain should improve each day . * Call the doctor for any increased redness, drainage or swelling around the incision and any pain unrelieved by prescribed pain medication. * Any signs or symptoms of phlebitis (possible blood clots forming in the veins ): leg pain, warm, red or swollen area on leg. * "Baby Blues" lasting longer than two weeks. If you have any questions or concerns, call your health care practitioner at . FOLLOW-UP VISIT: * Incision check (staple removal) in 1 week. Please call doctor's office at to set up appointment. * Please call the office at to schedule a 6 week examination. It is important you keep this appointment. * It is important for you to make arrangements for either yearly or twice yearly check-ups thereafter. . Current Hospital Diet Patient's current hospital diet: Regular OB Diet Discharge Diet Recommended Diet: Regular Diet Procedures Procedures Performed: Repeat Low Transverse Section with Bilateral Tubal Ligation, Live Female Infant at 0821 Pending Studies Studies pending at discharge: no Medical Emergencies . Who to Call and When: Medical Emergencies: If at any time you feel your situation is an emergency, please call [phone] immediately. . Non-Emergent Contact Non-Emergency issues call your: Specialist . . "Provider Documentation" section prepared by Paul Yadav. . VTE Core Measure Inpt VTE Proph given/why not?: Treatment not indicated
[2017-03-16] MEDS ORDERED: BISACODYL 10 MG SUPP PR PRN (09:15)
[2017-03-16] MEDS: FERROUS SULFATE 325 MG TAB PO SCH (09:19)
[2017-03-16] MEDS: DOCUSATE SODIUM 100 MG CAP PO SCH (09:19)
[2017-03-16] MEDS: SIMETHICONE 80 MG CHEW PO SCH ×3 (09:19→17:00)
[2017-03-16] MEDS: PRENATAL VITAMIN TAB PO SCH (09:20)
--- NOTE | 2017-03-16 11:00 | NUR ---
Patient was concerned about bleeding. Observed one pad saturated with rubra lochia. Patient was firm at U. Patient denies clots. Had patient change the pad and told her that nurse would be back in an hour to check bleeding. Patient instructed to let this nurse know if she passed a clot or if she had to change a pad before this nurse got back.
--- NOTE | 2017-03-16 12:00 | NUR ---
This nurse came to check patients bleeding. Patient had small rubra lochia. Patient was firm at U. Informed patient to let this nurse know if she had clots or saturated another pad.
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
[2017-03-16 16:00] VITALS: BP 116/61; PULSE 90; TEMP 37.1
--- NOTE | 2017-03-16 17:45 | NUR ---
patient verbalized discharge instructions. In wheelchair to lobby with infant and FOB
--- NOTE | 2017-03-22 13:23 | Discharge Summary ---
Discharge Summary Date of Service Mar 22, 2017. Discharge Summary Admission Date: Mar 14, 2017 at 05:28 Discharge Date: Mar 16, 2017 Discharge Disposition: Home Principal Diagnosis: IUP at 39.2 weeks, Hx prior C/S requesting repeat C/S, Desires permanent sterilization Procedures: Repeat Low transverse Section with bilateral tubal ligation Medication Reconciliation New Medications: Docusate Sodium (Docusate Sodium) 100 Mg Cap 100 MG PO BID, #60 CAP Ferrous Sulfate (Ferrous Sulfate) 325 Mg Tab 325 MG PO DAILY, #30 TAB Ibuprofen (Ibuprofen) 600 Mg Tab 600 MG PO Q4H PRN for Pain, ABEBE, Cramping, or Fever, #30 TAB Oxycodone/Acetaminophen 5MG/325MG (Percocet 5MG/325MG) Tab 1 TAB PO Q4H PRN for Pain - Pain Scale 1-5, #30 TAB PAIN Continued Medications: Multivit/Min/Iron/Fol Ac/Pren ( Vitamin) Tab 1 TAB PO DAILY for 120 Days, #60 TAB Admission Information HPI (per Admitting provider): Patient is a 41 y/o at term presented for a scheduled repeat C/S with bilateral tubal ligation. Her care has been uncomplicated. Prior delivery was via C/S and is requesting a repeat C/S with bilateral tubal ligation. Physical Exam (per Admitting): General Appearance: WD/WN, no apparent distress Respiratory/Chest: chest non-tender, lungs clear Cardiovascular: regular rate, rhythm Abdomen/GI: normal bowel sounds, soft Extremities/Musculoskelatal: no calf tenderness, normal range of motion Neurologic/Psych: alert, oriented x 3 Skin: normal color, warm/dry, no rash Hospital Course Patient underwent her scheduled repeat C/S with BTL on the day of admission without complications. Her postop recovery was uneventful. On POD # 1 her alfaro catheter was removed and her diet and activity were advanced as tolerated. Her incision remained clean,dry and intact. She was discharged on POD # 2 with discharge instructions. Total time spent on discharge = 20 mins This includes examination of the patient, discharge planning, medication reconciliation, and communication with other providers. Discharge Instructions ACTIVITY RECOMMENDATIONS: * Gradual return to full activity over the next 2-3 weeks. * No lifting - nothing heavier than baby over the next 2-3 weeks. * Do not engage in vigorous exercise, sexual activity or sports until cleared by your physician. * Do not drive or operate any motorized equipment until cleared by your physician. * You may shower/bathe daily. BREAST CARE: If you are not breast feeding: * Wear a supportive bra 24 hours a day for one to two weeks. * Avoid stimulating your breasts and nipples as much as possible during the first few weeks after delivery. * When taking a shower, have the warm water hit your back, not breasts. * When your breasts feel full, apply ice packs. Usually three to four times a day helps ease the discomfort. * Take a mild pain medication (Tylenol/Motrin) when you are uncomfortable. If breast feeding: * Use breast milk to lubricate nipples. Lansinoh cream may be used for sore nipples. You do not need to remove cream prior to breast feeding. If using a different brand of cream, check the label for directions regarding removal of cream prior to nursing. * Wear a supportive bra. * If having problems with breasts or breast feeding, call a senior health consultant or your health care provider. OVER THE COUNTER MEDICATION: * For discomfort or pain, you may use Acetaminophen (Tylenol), Ibuprofen (Advil ), or Naproxen (Aleve) following the package directions. * For constipation you may use Colace following the package directions. SPECIAL CARE INSTRUCTIONS: When you are discharged from the hospital, it is important for you to follow the instructions listed below: * During the first week at home, you should be able to care for yourself and your baby. In addition, the usual light household activities are encouraged. * Limit your activities to the way you feel. Do not try to clean the house or move furniture. Be sensible. * If you actively engage in sports and have done so up until the time of your delivery, you may resume these activities as soon as you feel able. This may take up to one month or even longer. Use good judgment. * Continue to take your vitamins for at least six weeks after the of your baby. * Your diet need not be limited unless you were on a special diet before your delivery. Breast-feeding mothers need around 2500 calories per day and at least 64-80 ounces of fluid per day (8 to 10 glasses). * You should eat foods from the four major food groups. Crash diets or fad diets are to be avoided. Eating lean meats, fresh fruits and vegetables, low-fat dairy products, high fiber foods and a regular exercise program, will help you get back to your pre- weight without putting your health at risk. * Constipation is sometimes a problem after delivery. Take a mild laxative as needed. If breast feeding, Milk of Magnesia is acceptable to use. You may use a suppository or Fleets enema if no episiotomy. * A daily shower or tub bath is suggested. Be sure to thoroughly and gently dry the perineum. * A bloody vaginal discharge will usually continue until around four weeks post . A small amount of bleeding may continue for as long as six weeks. Vaginal discharge changes from the bright red bleeding after delivery to pink then brownish and finally yellowish-pink before becoming white and disappearing. * Bleeding may increase with activity. Your first period may come in 4-8 weeks. If you are breast feeding, your period may be delayed even longer. * [place] (sex) can begin whenever both you and your partner feel comfortable and do not have any form of genital infection. It is recommended that you wait at least six weeks for internal and external healing to occur. If you have questions, please talk to your health care practitioner. A condom should be used to prevent infection and . * Foreplay, gentle intercourse and lubrication is very important the first several times to prevent pain. A water-based lubricant such as K-Y jelly or Astroglide may be used. * Tampons and/or Douching should be avoided until after six weeks check-up. * If you have RH negative blood and your baby is RH positive, you will receive RHOGAM by injection prior to discharge. The nurse will give you a card to keep with you that has the date and place that you received RHOGAM after delivery. * During your care, you had a Rubella screen done to check for the presence of rubella antibodies in your blood. If your test was negative, you will receive a Rubella vaccine prior to discharge. This vaccine may cause a fever, soreness at the injection site and flu-like symptoms. If these symptoms persist, notify your health care practitioner. is not advised for three months after a Rubella vaccine. * Verbalizes understanding of car seat law as reviewed with patient nursing. * Car Seat hand-out given and reviewed with patient by nursing. * Shaken baby information reviewed with patient by nursing. Call you doctor if: * Heavy bleeding (saturating several pads an hour) or passing clots the size of your fist. * A fever >101 degrees F (38.3 degrees C) on two occasions four hours apart and /or chills. * Unusual pain in the pelvic or vaginal areas. Pain should improve each day . * Call the doctor for any increased redness, drainage or swelling around the incision and any pain unrelieved by prescribed pain medication. * Any signs or symptoms of phlebitis (possible blood clots forming in the veins ): leg pain, warm, red or swollen area on leg. * "Baby Blues" lasting longer than two weeks. If you have any questions or concerns, call your health care practitioner at . FOLLOW-UP VISIT: * Incision check (staple removal) in 1 week. Please call doctor's office at to set up appointment. * Please call the office at to schedule a 6 week examination. It is important you keep this appointment. * It is important for you to make arrangements for either yearly or twice yearly check-ups thereafter.
== END 2017-03-16 17:45 | disposition home or self-care (01) | DRG 766 ==
LOC: C.LD 05:28 → EDSTATUS 07:30 → C.OBG 12:54
PROVIDERS: ADMIT Obstetrics & Gynecology; ATTEND Obstetrics & Gynecology
PROC: 0UB70ZX Excision of Bilateral Fallopian Tubes, Open Approach, Diagnostic (ICD-10-PCS; principal; 2017-03-14 07:30)
PROC: 10D00Z1 Extraction of Products of Conception, Low, Open Approach (ICD-10-PCS; principal; 2017-03-14 07:30)
DX: O34.211 Maternal care for low transverse scar from previous cesarean delivery (principal); Z30.2 Encounter for sterilization; Z3A.39 39 weeks gestation of pregnancy; Z37.0 Single live birth

== ENCOUNTER 2018-10-30 00:24 | Inpatient (IN) ==
[2018-10-30 01:31] LABS: Basophils # (auto) 0.02 K/uL (0-0.2); Basophils % (auto) 0.2 %; Eosinophils # (auto) 0.14 K/uL (0-0.5); Eosinophils % (auto) 1.5 %; Hematocrit (blood only) 39.8 % (37-47); Hemoglobin 13.3 g/dL (12.0-16.0); Immature Granulocytes # (auto) 0.02 K/uL (0.00-0.02); Immature Granulocytes % (auto) 0.2 %; Lymphocytes # (auto) 3.55 K/uL (1.2-3.4); Lymphocytes % (auto) 37.8 %; Mean Corpuscular Hgb Conc 33.4 g/dL (32-36); Mean Corpuscular Volume 85.2 fL (80-100); Mean Platelet Volume 9.8 fL (7.4-10.4); Monocytes # (auto) 0.72 K/uL (0.11-0.59); Monocytes % (auto) 7.7 %; Neutrophils # (auto) 4.93 K/uL (1.4-6.5); Neutrophils % (auto) 52.6 %; Platelet Count 222 K/uL (130-400); RDW Coefficient of Variation 14.3 % (11.5-14.5); RDW Standard Deviation 44.6 fL (36.4-46.3); Red Blood Count 4.67 M/uL (4.2-5.4); White Blood Count 9.38 K/uL (4.8-10.8)
[2018-10-30 01:50] LABS: Albumin Level 3.7 gm/dl (3.4-5.0); BUN Creatinine Ratio 6.8 (10-20); Calcium 8.8 mg/dl (8.5-10.1); Creatinine Clr Calc Pharmacy 102.6 ml/min; Est GFR (African American) 107.8; Potassium 3.8 mmol/L (3.5-5.1)
[2018-10-30 02:00] LABS: Albumin Globulin Ratio 1.2 (0.9-2); Bilirubin,Total 0.4 mg/dl (0.2-1); Globulin 3.1 gm/dl (2.5-4.0); Total Protein 6.8 gm/dl (6.4-8.2)
[2018-10-30 02:00] LABS: Acetaminophen < 2 ug/ml (10-30); Salicylate 2.8 mg/dl (2.8-20)
[2018-10-30 02:11] LABS: Appearance Urine Clear (Clear); Bilirubin Urine Negative (Negative); Blood Urine Negative (Negative); Color Urine Yellow; Glucose Urine UA Negative (Negative); Ketones Urine Negative (Negative); Leukocyte Esterase Urine Negative (Negative); Nitrite Urine Negative (Negative); Pregnancy Test, Urine Negative (Negative); Protein Urine Negative (Negative); Specific Gravity Urine 1.013 (1.000-1.030); Urobilinogen Urine Negative (Negative)
[2018-10-30 02:37] LABS: Amphetamines+Metham, Urine Neg (Neg); Barbiturates, Urine Neg (Neg); Benzodiazepine, Urine Neg (Neg); Cocaine, Urine Neg (Neg); MDMA (Ecstacy), Urine Neg (Neg); Methadone, Urine Neg (Neg); Opiate, Urine Neg (Neg); Phencyclidine, Urine Neg (Neg)
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
[2018-10-30] MEDS ORDERED: ALUMINUM/MAGNESIUM SUSP 30 ML UDC PO PRN (04:59)
[2018-10-30] MEDS ORDERED: MAGNESIUM HYDROXIDE SUSP 30 ML UDC PO PRN (04:59)
[2018-10-30] MEDS ORDERED: BISMUTH SUBSALICYLATE PER ML OMNICELL CHARGE PO PRN (04:59)
[2018-10-30] MEDS ORDERED: SODIUM CHLORIDE 0.65% NA SOLN 45 ML (OCEAN) PRN (04:59)
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
[2018-10-30] MEDS: NICOTINE 14 MG/24 HR PATCH TD SCH (10:20)
[2018-10-30] MEDS: lamoTRIgine 25 MG TAB PO SCH (10:20)
[2018-10-30] MEDS: ARIPiprazole 15 MG TAB PO SCH (20:44)
[2018-10-31 08:10] LABS: Glucose Fasting 86 mg/dl (70-99)
[2018-10-31 08:17] LABS: Chol HDL Ratio 4; Cholesterol 155 mg/dl (0-200); HDL Cholesterol 44 mg/dl; LDL Cholesterol Calculated 88 mg/dl; Triglycerides 113 mg/dl (0-150); VLDL Cholesterol 23 mg/dl
[2018-10-31] MEDS: lamoTRIgine 25 MG TAB PO SCH (09:05)
[2018-10-31] MEDS: NICOTINE 14 MG/24 HR PATCH TD SCH (09:06)
[2018-10-31] MEDS: NICOTINE POLACRILEX 2 MG GUM MT PRN ×2 (11:22→14:52)
--- NOTE | 2018-10-31 14:18 | Psychiatric Progress Note ---
Date of Service October 31, 2018 Impression / Recommendations Impression 42-year-old female with an unclear psychiatric history, as she is a poor historian and gives conflicting reports. From what I can see in her records, she was hospitalized at the [facility] 2 months ago, and per ER notes left AMA after a couple of weeks. She was apparently started on aripiprazole and lamotrigine there, and although she reports good compliance, other sources indicate nonadherence. She did not follow up as an outpatient, missing her [facility] appointment. She presented with her sister overnight after she was kicked out of her housing (apartment with friends and [place]) due to inability to pay rent, and was admitted with depressive and psychotic symptoms. She is notably disorganized, disoriented, paranoid, with delusions of persecution and thought insertion. She is very guarded and will not answer questions about loss of custody of her children, and when she does answer questions, is a poor historian and gives conflicting reports. As she does think the medications started at the [facility] have been helpful, we will start with resuming those while gathering additional information. Inpatient treatment is medically necessary due to the severity of her symptoms and inability to provide for her own basic needs, including healthcare (not taking psychotropic medications reliably, noncompliant with outpatient treatment), housing, and nutrition. She apparently lost or spent her whole paycheck at the bar several days prior to hospitalization, so has no way to support herself. (1) Psychosis: 10/30 -the differential includes psychotic depression, bipolar depression with psychosis, and a primary thought disorder. Suspicion for substance-induced psychosis is low, as although she has a history of alcohol abuse, she denies other drug use and the 3 drug screen she has had in the past 6 months in our ER were negative. -Continue aripiprazole 30 mg daily, and order fasting lipid profile and glucose for monitoring on an atypical antipsychotic. - Get records from recent hospitalization at [facility] to clarify past diagnoses and medication trials. - Get collateral information from sister as patient is a poor historian. - Continue most recent medication regimen, aripiprazole 30mg HS and lamotrigine 50mg daily, and titrate lamotrigine per standard titration schedule (need to clarify when started with [facility] records). - Encourage group attendance and participation. Work on healthy coping skills and discharge safety plan. Scheduled family meeting with sister. -Refer for outpatient treatment at [facility] and case management through [facility]. 10/31 - Continue treatment plan as outlined above - patient continues to be unable to provide history regarding her previous psychiatric diagnoses - Continue aripiprazole 30mg and lamotrigine 50mg (titration can continue once start date is clarified) - Fasting labs reviewed - all WNL - Pt will require a family meeting with outpatient support - does not verbalize who this would be (2) Mood disorder: 10/30 - 10/31 - See above Risk Factors Assessment Male: No : Yes Do You Have Access To A Gun?: No Health Problems: No Mental Health Diagnoses: Yes Substance Use Disorders: Yes (History of alcohol abuse and DUI) Previous Attempt: No Previous Psychiatric Hospitalization: Yes Smoker: Yes Protective Factors Assessment : No Responsible for Young Children: No Employed: Yes ([employer]) Supportive Family: Yes Good Rapport with Provider: No Interval History Identifying Information RADHA HACKETT is a 42-year-old F who currently lives in [place], has a history of bipolar disorder and PTSD, and was admitted on 10/30/18 03:56 on a 201 voluntary commitment for worsening mood, confusion, paranoia, and thoughts that people were going to kill her. Chief Complaint "I'm ok. I'm feeling a little worn down today." Review of Systems Notes Constitutional: reports feeling "tired" today Cardiovascular: denied Respiratory: denied Gastrointestinal: denied Neurological: denied Psychiatric: denies symptoms other than stated above Total of at least 10 systems reviewed, pertinent positives as above and in HPI. Sleep Information Total Hours of Sleep: 7.75 Sleep Comments: pt NPO during the night. pt on q-15 minute checks Meal Information Percent Meal Consumed - Breakfast: 100 Percent Meal Consumed - Lunch: 100 Percent Meal Consumed - Dinner: 100 Nutrition Comment: per meal record Subjective Subjective Patient was seen & assessed and interval progress reviewed with treatment team. Staff reports the patient continues to appear guarded on the unit. She is continuing to demonstrate some paranoia related to family members. Pt was seen today to assess progress since admission. Pt states she is feeling "a little worn down today." Pt reports feeling "tired. Exhausted, not physically, but mentally exhausted." Pt reports a long-term goal to be home, taking her medications, functioning, and caring for her children. Pt continues to believe that she had been taking steps to work toward this when her sister recommended admission. At this point, patient continues to deny confusion or paranoia prior to admission. Pt at one point states, "something is definitely off, but they [family] also are trying to create problems that aren't there." Pt is unable to state what she feels is "off", and responds by saying - "when I take my medications, I improve." Pt states that in her history of mental health treatment, she generally does not recognize a decline in functioning until she has "a period of clarity and feeling better." Pt reports housing continues to be a stressor, and that she is interested in exploring housing options that will also be good for her children. Pt denies concerns with medications and does not have other questions at this time. Physical Exam Psychiatric Orientation: alert, oriented x 3 and cooperative Apperance: appropriately dressed (casually in long-sleeved t-shirt and scrub pants), appropriately groomed and appeared stated age Eye Contact: good eye contact Motor Behavior: steady gait and station and + psychomotor retardation (appearing slowed) Speech: + abnormal rate/rhythm/volume of speech (speech is somewhat slowed today ) Affect: + blunted affect; no anxious affect Mood: + depressed mood and + anxious mood reports feeling "worn out" and "mentally exhausted" Thought Process: goal directed thought process, clear/coherent thought process, + circumstantial thought process (mildly, does not directly answer questions asked of her) and + looseness of associations Thought Content: + preoccupation (with getting her children back) and + cognitive distortions; no delusions (no clearly delusional thought contents were verbalized today) and no hopelessness Suicidal Thoughts: denies suicidal thoughts and denies suicidal intent Homicidal Thoughts: denies homicidal thoughts Hallucinations: no auditory hallucinations and no visual hallucinations Cognition: attention grossly intact and language grossly intact Estimated Intelligence: consistent with education level Insight: + impaired insight Judgement: + impaired judgement Vital Signs (Past 24 Hours) Last Vital Signs Temp 36.8 C 10/31/18 07:03 Pulse 75 10/31/18 07:04 Resp 18 10/31/18 07:03 BP 97/66 L 10/31/18 07:04 Pulse Ox 99 10/30/18 04:25 Results & Data Laboratory Results Laboratory Results - last 24 hr 10/31/18 07:15 Fasting Glucose 86 Triglycerides 113 Cholesterol 155 LDL Cholesterol, Calc 88 VLDL Cholesterol, Calc 23 HDL Cholesterol 44 Cholesterol/HDL Ratio 4 Current Inpatient Medications Current Inpatient Medications: Current Inpatient Medications Acetaminophen (Tylenol) 650 mg PO Q4H PRN PRN Reason: Headache or Minor Fever Stop: 11/29/18 04:58 Al Hydrox/Mg Hydrox/Simethicone (Maalox) 30 ml PO Q4H PRN PRN Reason: GI Upset Stop: 11/29/18 04:58 Aripiprazole (Abilify) 30 mg PO HS DOT Stop: 11/29/18 21:59 Last Admin: 10/30/18 20:44 Dose: 30 mg Documented by: Bismuth Subsalicylate (Kaopectate) 15 ml PO PRN PRN PRN Reason: Loose Stool Stop: 11/29/18 04:58 Hydroxyzine HCl (Vistaril) 25 mg PO Q4H PRN PRN Reason: Anxiety Stop: 11/29/18 04:58 Hydroxyzine HCl (Vistaril) 50 mg PO HSZ PRN PRN Reason: Insomnia Stop: 11/29/18 04:58 Lamotrigine (Lamictal) 50 mg PO QAM DOT Stop: 11/29/18 08:59 Last Admin: 10/31/18 09:05 Dose: 50 mg Documented by: Magnesium Hydroxide (Milk Of Magnesia) 30 ml PO DAILY PRN PRN Reason: Heartburn Stop: 11/29/18 04:58 Miscellaneous (Remove Nicoderm Patch) 1 ea N/A DAILY@2200 [facility] Stop: 11/29/18 21:59 Last Admin: 10/30/18 20:44 Dose: 1 ea Documented by: Nicotine (Nicoderm Cq) 14 mg TD QAM DOT Stop: 11/29/18 08:59 Last Admin: 10/31/18 09:06 Dose: 14 mg Documented by: Nicotine Polacrilex (Nicorette 2mg) 1 piece MT UD PRN PRN Reason: Nicotine Withdrawal Stop: 11/29/18 04:58 Last Admin: 10/31/18 11:22 Dose: 1 piece Documented by: Sodium Chloride ([place] Nasal) 1 - 2 sprays NA PRN PRN PRN Reason: Nasal Dryness/Congestion Stop: 11/29/18 04:58 Mental Health & Subst Abuse Tx Therapist Name of Therapist: None Roster Clerk Name of Roster Clerk: None Post Discharge Appointments Primary Care Physician Name Of Family Doctor: Kimberlyn Nguyen PA-C Primary Care Contact Information Discharge Discharge Address: [place] [address] CPT Code CPT Code 20940 (1) Psychosis Psychosis type: unspecified psychosis type Qualified Code(s): F29 - Unspecified psychosis not due to a substance or known physiological condition
[2018-10-31] MEDS: ARIPiprazole 15 MG TAB PO SCH (20:55)
[2018-11-01] MEDS: NICOTINE 14 MG/24 HR PATCH TD SCH (08:07)
[2018-11-01] MEDS: lamoTRIgine 25 MG TAB PO SCH ×2 (08:07→20:51)
[2018-11-01] MEDS: NICOTINE POLACRILEX 2 MG GUM MT PRN (08:10)
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
[2018-11-01] MEDS: ARIPiprazole 15 MG TAB PO SCH (20:51)
[2018-11-02] MEDS: NICOTINE POLACRILEX 2 MG GUM MT PRN ×2 (09:01→21:07)
[2018-11-02] MEDS: lamoTRIgine 25 MG TAB PO SCH ×2 (09:02→21:06)
[2018-11-02] MEDS: NICOTINE 14 MG/24 HR PATCH TD SCH (09:05)
[2018-11-02] MEDS: ACETAMINOPHEN 325 MG TAB PO PRN ×2 (11:04→17:19)
--- NOTE | 2018-11-02 14:29 | Psychiatric Progress Note ---
Date of Service November 02, 2018 Impression / Recommendations Impression 42-year-old female with an unclear psychiatric history, as she is a poor historian and gives conflicting reports. From what I can see in her records, she was hospitalized at the [facility] 2 months ago, and per ER notes left AMA after a couple of weeks. She was apparently started on aripiprazole and lamotrigine there, and although she reports good compliance, other sources indicate nonadherence. She did not follow up as an outpatient, missing her [facility] appointment. She presented with her sister overnight after she was kicked out of her housing (apartment with friends and [place]) due to inability to pay rent, and was admitted with depressive and psychotic symptoms. She is notably disorganized, disoriented, paranoid, with delusions of persecution and thought insertion. She is very guarded and will not answer questions about loss of custody of her children, and when she does answer questions, is a poor historian and gives conflicting reports. Pt restarted on medications prescribed from the [facility]. She initially verbalized she did not feel they were overly helpful, but is now consistently stating she feels the medications worked well. Inpatient treatment is medically necessary due to the severity of her symptoms and inability to provide for her own basic needs, including healthcare (not taking psychotropic medications reliably, noncompliant with outpatient treatment), housing, and nutrition. She apparently lost or spent her whole paycheck at the bar several days prior to hospitalization, so has no way to support herself. (1) Psychosis: 10/30 -the differential includes psychotic depression, bipolar depression with psychosis, and a primary thought disorder. Suspicion for substance-induced psychosis is low, as although she has a history of alcohol abuse, she denies other drug use and the 3 drug screen she has had in the past 6 months in our ER were negative. -Continue aripiprazole 30 mg daily, and order fasting lipid profile and glucose for monitoring on an atypical antipsychotic. - Get records from recent hospitalization at [facility] to clarify past diagnoses and medication trials. - Get collateral information from sister as patient is a poor historian. - Continue most recent medication regimen, aripiprazole 30mg HS and lamotrigine 50mg daily, and titrate lamotrigine per standard titration schedule (need to clarify when started with [facility] records). - Encourage group attendance and participation. Work on healthy coping skills and discharge safety plan. Scheduled family meeting with sister. -Refer for outpatient treatment at [facility] and case management through [facility]. 10/31 - 11/01 - Continue treatment plan as outlined above - patient continues to be unable to provide history regarding her previous psychiatric diagnoses - Continue aripiprazole 30mg and lamotrigine 50mg (titration can continue once start date is clarified) - Fasting labs reviewed - all WNL - Pt will require a family meeting with outpatient support - does not verbalize who this would be 11/02 - Continue aripiprazole 30mg qHS and lamotrigine 50mg BID - Pt signed MANJULA to schedule a family meeting with her sister, clarify sister's concerns regarding patient's mental health - Continue to discuss discharge needs and aftercare arrangements (2) Mood disorder: 10/30 - 10/31 - See above 11/01 - Return to discharge dosage of lamotrigine 50mg BID starting today; risks & benefits reviewed and patient is agreeable (3) Cognitive change: 11/01 - Cognitive change is reported by sister, as she has been admitted for concerns of confusion and inability to appropriately care for self. At time treatment possible psychiatric component to these unspecified changes, but there may be another etiology to explain these concerns. History of alcohol use and family member with early-onset Alzheimer's is reported. - Attempt to gather collateral information from patient's sister to determine specific observations that have been made. - MoCA completed on 11/01/18 - pt scored either a 20/30 or 21/30 (unclear if she completed 12th grade or only 11th). Minor deficits noted in visuoconstruction skills (one line missing from cube, started clock with "1" at top, no difference in length of hands). Delay in reciting backward digit span, required saying the numbers forward twice before producing the backward series. Unable to even attempt serial 7's mentally, when given paper and pen, sequence of numbers was "100 - 193 - 186 - 179 - 172 - 65". Only able to verbalize 10 words for verbal fluency (>11 to score). And deficit in relayed recall, 3/5 words recalled. Risk Factors Assessment Male: No : Yes Do You Have Access To A Gun?: No Health Problems: No Mental Health Diagnoses: Yes Substance Use Disorders: Yes (History of alcohol abuse and DUI) Previous Attempt: No Previous Psychiatric Hospitalization: Yes Smoker: Yes Protective Factors Assessment : No Responsible for Young Children: No Employed: Yes ([employer]) Supportive Family: Yes Good Rapport with Provider: No Interval History Identifying Information RADHA HACKETT is a 42-year-old F who currently lives in [place], has a history of bipolar disorder and PTSD, and was admitted on 10/30/18 03:56 on a 201 voluntary commitment for worsening mood, confusion, paranoia, and thoughts that people were going to kill her. Chief Complaint "Oh I'm fine. We did that relaxation thing, so I figured I'd lay in bed." Review of Systems Notes Constitutional: denied Cardiovascular: denied Respiratory: denied Gastrointestinal: denied Neurological: denied Psychiatric: denies symptoms other than stated above Total of at least 10 systems reviewed, pertinent positives as above and in HPI. Sleep Information Total Hours of Sleep: 9 Sleep Comments: pt appeared to sleep 2 hrs during evening shift. pt on q-15 minute checks Meal Information Percent Meal Consumed - Breakfast: 100 Percent Meal Consumed - Lunch: 100 Percent Meal Consumed - Dinner: 90 Nutrition Comment: per meal record Subjective Subjective Patient was seen & assessed and interval progress reviewed with treatment team. Staff reports the patient continues to participate in most groups. She continues to waver in her willingness to involve her sister and a family meeting prior to discharge. Patient was agreeable to referral for a bilingual patient support caseworker. Patient was seen today to assess progress since admission. She was found to be laying in her bed, and stated that they had just completed a relaxation group. Patient states that she is not tired or bored, but "just thought I should come to bed." Patient states that she has been making phone calls to seek out housing options at discharge. She also states that she completed her phone interview for a case management referral. Patient continues to feel that she is appropriate to return home and is requesting discharge soon, "at least by Monday. I have meetings scheduled." Patient continues to state that she is not confused and remains unsure about her sister's concerns that led to her recommended admission. This provider again shared with the patient her desire to involve her sister and a family meeting in order to ensure that these con cerns have been mitigated during her admission. Patient was ultimately agreeable to signing a release of information to allow us to schedule and participate in a family meeting with her sister, and the patient actually called her sister to attempt to schedule this meeting. Patient states she continues to be happy with her current medication regimen. She denies suicidality. Patient denies other needs or concerns at this time. Physical Exam Psychiatric Orientation: alert, oriented x 3 and cooperative Apperance: appropriately dressed, appropriately groomed and appeared stated age Eye Contact: good eye contact Motor Behavior: no abnormal motor movements (Observed while lying in bed) Speech: normal rate/rhythm/volume of speech (Mildly slowed speech) Affect: + blunted affect; no depressed affect and no anxious affect Mood: no depressed mood and no anxious mood "I feel fine, I can go home" Thought Process: goal directed thought process, clear/coherent thought process and + concrete thought process Thought Content: + paranoid (Mild, regarding family's involvement in her treatment) and reality based without delusions (Patient does not verbalize clearly delusional thought content) Suicidal Thoughts: denies suicidal thoughts and denies suicidal intent Homicidal Thoughts: denies homicidal thoughts Hallucinations: no auditory hallucinations and no visual hallucinations Cognition: attention grossly intact and language grossly intact Estimated Intelligence: + below average estimated intelligence Insight: + impaired insight Judgement: + impaired judgement Vital Signs (Past 24 Hours) Last Vital Signs Temp 37.2 C 11/02/18 06:48 Pulse 73 11/02/18 06:48 Resp 18 11/02/18 06:48 BP 101/69 11/02/18 06:48 Pulse Ox 99 10/30/18 04:25 Results & Data Current Inpatient Medications Current Inpatient Medications: Current Inpatient Medications Acetaminophen (Tylenol) 650 mg PO Q4H PRN PRN Reason: Headache or Minor Fever Stop: 11/29/18 04:58 Last Admin: 11/02/18 11:04 Dose: 650 mg Documented by: Al Hydrox/Mg Hydrox/Simethicone (Maalox) 30 ml PO Q4H PRN PRN Reason: GI Upset Stop: 11/29/18 04:58 Aripiprazole (Abilify) 30 mg PO HS DOT Stop: 11/29/18 21:59 Last Admin: 11/01/18 20:51 Dose: 30 mg Documented by: Bismuth Subsalicylate (Kaopectate) 15 ml PO PRN PRN PRN Reason: Loose Stool Stop: 11/29/18 04:58 Hydroxyzine HCl (Vistaril) 25 mg PO Q4H PRN PRN Reason: Anxiety Stop: 11/29/18 04:58 Hydroxyzine HCl (Vistaril) 50 mg PO HSZ PRN PRN Reason: Insomnia Stop: 11/29/18 04:58 Lamotrigine (Lamictal) 50 mg PO BID DOT Stop: 12/01/18 20:59 Last Admin: 11/02/18 09:02 Dose: 50 mg Documented by: Magnesium Hydroxide (Milk Of Magnesia) 30 ml PO DAILY PRN PRN Reason: Heartburn Stop: 11/29/18 04:58 Miscellaneous (Remove Nicoderm Patch) 1 ea N/A DAILY@2200 [facility] Stop: 11/29/18 21:59 Last Admin: 11/01/18 20:51 Dose: 1 ea Documented by: Nicotine (Nicoderm Cq) 14 mg TD QAM DOT Stop: 11/29/18 08:59 Last Admin: 11/02/18 09:05 Dose: 14 mg Documented by: Nicotine Polacrilex (Nicorette 2mg) 1 piece MT UD PRN PRN Reason: Nicotine Withdrawal Stop: 11/29/18 04:58 Last Admin: 11/02/18 09:01 Dose: 1 piece Documented by: Sodium Chloride ([place] Nasal) 1 - 2 sprays NA PRN PRN PRN Reason: Nasal Dryness/Congestion Stop: 11/29/18 04:58 Mental Health & Subst Abuse Tx Psychiatrist Name of Psychiatrist: [facility]? Therapist Name of Therapist: [facility]? Date of Therapist Appointment: 12/26/18 Time of Therapist Appointment: 12:30-3:30 Therapy Appointment Comment: intake appointment 12/26. Next appointment on MondayJan 02 12:30-3:30 Grocery Sacker Name of Grocery Sacker: [facility] Phone Number for Grocery Sacker: [phone] Case Management Appointment Comment: [address] [place], [place] [address] Post Discharge Appointments Primary Care Physician Name Of Family Doctor: Mino Nguyen PA-C Primary Care Time of Appointment with PCP: Follow up as needed. Provider Appointment Comment: [address] [place] [address] Other #1: Name of Aftercare Appointment: [facility] Phone Number of Aftercare Appointment: [phone] Date of Aftercare Appointment: 12/26/18 Time of Aftercare Appointment: 12:30-3:30pm. Next appt Jan 02 at 12:30- 3:30pm [facility] [address] Contact Information Discharge Discharge Address: [address] [address] CPT Code CPT Code 98556 (1) Psychosis Psychosis type: unspecified psychosis type Qualified Code(s): F29 - Unspecified psychosis not due to a substance or known physiological condition
[2018-11-02] MEDS: ARIPiprazole 15 MG TAB PO SCH (21:06)
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
[2018-11-03] MEDS: lamoTRIgine 25 MG TAB PO SCH ×2 (09:08→21:17)
[2018-11-03] MEDS: NICOTINE 14 MG/24 HR PATCH TD SCH (09:08)
[2018-11-03] MEDS: ACETAMINOPHEN 325 MG TAB PO PRN (13:45)
[2018-11-03] MEDS: NICOTINE POLACRILEX 2 MG GUM MT PRN (13:46)
[2018-11-03] MEDS ORDERED: TRIHEXYPHENIDYL HCL 2 MG TAB PO PRN (17:56)
[2018-11-03] MEDS: ARIPiprazole 15 MG TAB PO SCH (21:17)
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
[2018-11-04] MEDS: lamoTRIgine 25 MG TAB PO SCH ×2 (08:49→21:00)
[2018-11-04] MEDS: NICOTINE 14 MG/24 HR PATCH TD SCH (08:50)
[2018-11-04] MEDS: ARIPiprazole 15 MG TAB PO SCH (20:59)
[2018-11-05] MEDS: NICOTINE 14 MG/24 HR PATCH TD SCH (07:22)
[2018-11-05] MEDS: lamoTRIgine 25 MG TAB PO SCH (07:22)
[2018-11-05] MEDS: ACETAMINOPHEN 325 MG TAB PO PRN (07:23)
[2018-11-05] MEDS: NICOTINE POLACRILEX 2 MG GUM MT PRN (07:23)
--- NOTE | 2018-11-05 15:18 | Discharge Summary ---
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 Reviewed and Signed Smoking Cessation Counseling Tobacco Cessation Medication Prescribed at Discharge: Offered & Prescribed Contact Information Discharge Discharge Address: [address] [address] Discharge Plan Discharge Items Patient Disposition: Home - Self-Care Reason For Visit: BIPOLAR Discharge Diagnosis: Bipolar Disorder Discharge Goals: Decrease discomfort, Improve disease control, Improve function and Increase independence Activity: Resume your previous activity Non-emergency contact: Primary Care Provider, Psychiatrist and Therapist Call non-emergency contact if: you have any medication questions and your symptoms worsen Follow-up/Referrals: Kimberlyn Lynch PA-C [Primary Care Provider] - Diet: Regular Addtl Provider Instructions: Use your safety plan. Stay focused on your goals. Prescriptions: New nicotine 7 mg/24 hr Patch 24 Hour 14 mg transdermal QAM Qty: 14 RF: 0 aripiprazole [Abilify] 15 mg Tablet 30 mg PO HS Qty: 30 RF: 1 lamotrigine [Lamictal] 25 mg Tablet 50 mg PO BID Qty: 30 RF: 0 hydroxyzine HCl 25 mg Tablet 25 mg PO Q4H PRN (Reason: Anxiety) Qty: 30 RF: 1 aripiprazole 30 mg tablet 30 mg PO DAILY Qty: 14 RF: 0 Discontinued lamotrigine [Lamictal] 25 mg Tablet 50 mg PO BID RF: 0 aripiprazole [Abilify] 30 mg Tablet 30 mg PO HS RF: 0 Stand-Alone Forms: [facility] Discharge Orders: Discharge Order (Routine); Ordered 11/05/18 Ordered By: Carlos Burnett Admission Data Admit Date/Time: 10/30/18 03:56 Attending Provider: Mey Ellis Admit Provider: Koby Lyons I Primary Care Provider: Kimberlyn Lynch Service: Psychiatry Other Interventions: Discharge Summary Assessment (RN) Last Done: 11/05/18 13:50 PSY Interdisciplinary Discharge Planning Last Done: 11/05/18 14:36 Pending Studies at Discharge: No DC Date/Time DO NOT enter until pt leaves facility: 11/05/18 15:21
== END 2018-11-05 15:21 | disposition home or self-care (01) | DRG 885 ==
LOC: ED 00:24 → 3S 03:56
DX: F29 Unspecified psychosis not due to a substance or known physiological condition; Z90.49 Acquired absence of other specified parts of digestive tract; F43.10 Post-traumatic stress disorder, unspecified; Z82.0 Family history of epilepsy and other diseases of the nervous system; R41.89 Other symptoms and signs involving cognitive functions and awareness; Z80.9 Family history of malignant neoplasm, unspecified; Z82.49 Family history of ischemic heart disease and other diseases of the circulatory system; J45.909 Unspecified asthma, uncomplicated; Z83.3 Family history of diabetes mellitus; F31.9 Bipolar disorder, unspecified; Z91.14 Patient's other noncompliance with medication regimen; F17.210 Nicotine dependence, cigarettes, uncomplicated

== ENCOUNTER 2024-10-15 18:58 | Inpatient (IN) ==
--- NOTE | 2024-10-15 19:08 | Emergency Department Note ---
Impression & Plan Pulmonary embolism, Chest pain, Shortness of breath ED Provider Note NAME: RADHA HACKETT AGE: 48 SEX: F : 1975 ARRIVES VIA: Ambulance INFORMANT: Patient ED PROVIDER(S): Pio Rosen DO CHIEF COMPLAINT: Chest pain HPI: Patient is a 48-year-old female with a past medical history of alcohol intoxication, asthma, anxiety and mood disorder who presents to the ER for chest pain. She notes this feels like her previous panic attacks but worse. She has heaviness in her chest and she had diffuse paresthesias throughout her entire body including jaw, arms, legs, and back. She notes that she did vomit when this occurred. All her symptoms started about 2 hours ago. She denies any exertional symptoms. It is worse when she was sitting there thinking about it. No recent trips or travel, swelling of the calfs history of blood clots or clotting disorders. Denies any history of diabetes, hypertension, hyperlipidemia, CAD but does admit to smoking. ADDITIONAL HISTORY OBTAINED: EMS provided additional history and notes that patient was given 324 of aspirin prior to arrival. Chronic Medical/Social Conditions Affecting Care: Per HPI PAST MEDICAL HISTORY:See Below PAST SURGICAL HISTORY:See Below FAMILY HISTORY:See Below SOCIAL HISTORY:See Below HOME MEDICATIONS:See Below ALLERGIES:See Below VITALS:See Below PHYSICAL EXAMINATION: GENERAL: Sitting up in bed, alert, well appearing, well nourished, no distress, non-toxic EYE EXAM: normal conjunctiva. OROPHARYNX: no exudate, no erythema, lips, buccal mucosa, and tongue normal and mucous membranes are moist NECK: supple, no nuchal rigidity, no adenopathy, non-tender LUNGS: Clear to auscultation. Normal chest wall mechanics HEART: no murmurs, S1 normal and S2 normal ABDOMEN: abdomen soft, non-tender, normo-active bowel sounds, no masses, no rebound or guarding. BACK: Back is symmetrical on inspection and there is no deformity, no midline tenderness, no CVA tenderness. UPPER EXTREMITIES: upper extremities are grossly normal. Radial pulses are equal bilaterally LOWER EXTREMITIES: No pitting edema. Calves are equal bilaterally NEURO EXAM: Normal sensorium, cranial nerves II-XII grossly intact, normal speech, no gross weakness of arms, no gross weakness of legs. MEDICAL DECISION MAKING: Patient is a 48-year-old female who presents ER for the above-stated complaint. IV was established and blood work was obtained. Labs showed no significant leukocytosis or anemia. BMP along LFTs bilirubin was unremarkable. Lipase was normal. Troponin was negative. D-dimer was elevated and consequently CT angio the chest was obtained and shows PEs. Chest x-ray and EKG were unremarkable. Discussed with patient at bedside in regards to bleeding risk factors which included previous brain bleeds, recent surgery, coughing up blood, urinating blood or blood in the stool. She denied all of this. She was given a heparin bolus and drip. Discussed with the hospitalist admitted for further workup. Consults/Care Managements Discussions: Per [facility] Triage Nursing notes reviewed. Limited review of prior medical records performed Vital Signs: reviewed and remarkable for no significant abnormalities Differential diagnosis: Cardiac ischemia, aortic dissection, pulmonary embolism, pneumothorax, pneumonia, pericarditis, myocarditis, esophageal rupture, GERD, cholecystitis, pancreatitis, musculoskeletal, as well as other pathologies. ER treatment provided: See below Diagnostics interpreted by me include EKG and cardiac monitoring as listed below: -Cardiac Monitoring: An order was placed for continuous cardiac monitoring. The monitor shows a rate of 60 with sinus rhythm. -ECG: Sinus rhythm rate 61 Normal axis No PVCs QTc 440 -Laboratory studies:Interpreted by me as stated above in MDM and shown below. Imaging studies: Xrays: As interpreted by me: Portable AP upright 1 view of the chest shows no focal infiltrate CTs show: CT angio of the chest shows PEs Procedures:none Critical Care: I have personally spent 35 minutes of critical care time in the direct management of this patient. This includes bedside care, interpretation of diagnostic studies, and testing, discussion with consultants, patient, and family members, and other required patient management activities. This 35 minutes is in excess of all separately billable procedures. Past Med/Surg History Problem List (Updated 10/16/24 @ 00:16 by Pio Rosen DO) Shortness of breath (Acute) Chest pain (Acute) Pulmonary embolism (Acute) Mood disorder (Acute) Non compliance w medication regimen (Acute) Bipolar disorder (manic depression) Alcohol intoxication (Acute) Asthma (Chronic) Stomach problems (Chronic) Cramping affecting , antepartum Pneumonitis (Acute) Pneumonitis (Acute) Medical History Asthma Bipolar disorder (manic depression) Bronchitis Paranoid schizophrenia Pneumonia Postconcussion syndrome Stomach problems Surgical History H/O tubal ligation S/P S/P cholecystectomy Family History Other Cancer Diabetes Heart disease Hypertension Seizures Social History Smoking Status: Current every day smoker Tobacco Type: Cigarettes Preferred Language: Mohawk Communication Ability: Effective Paid Search Marketing Strategist Required: No Beliefs That Will Affect Care: None Feels Safe at Home: Yes Assistive Devices: None Allergies Allergies Allergy/AdvReac Type Severity Reaction Status Date / Time No Known Allergies Allergy Verified 08/22/18 16:50 Home Meds Home Medications Medication Instructions Recorded Confirmed albuterol sulfate 90 mcg/actuation 2 puff inhalation Q4 PRN DYSPNEA 10/15/24 10/15/24 aerosol inhaler OR WHEEZING famotidine 10 mg tablet (Heartburn 10 mg PO AMHS 10/15/24 10/15/24 Relief (famotidine)) fluticasone propionate 50 2 spray intranasal QAM 10/15/24 10/15/24 mcg/actuation nasal spray,suspension hydroxyzine HCl 25 mg tablet 75 mg PO HS 10/15/24 10/15/24 lamotrigine 100 mg tablet 100 mg PO HS 10/15/24 10/15/24 nystatin 100,000 unit/gram topical 1 applic topical TID PRN UNDER 10/15/24 10/16/24 powder (Klayesta) BREAST ITCHY pregabalin 25 mg capsule 25 mg PO AMHS 10/15/24 10/15/24 sulindac 200 mg tablet 200 mg PO AMHS 10/15/24 10/15/24 sumatriptan succinate 50 mg tablet 50 mg PO UD 10/15/24 10/15/24 tirzepatide (weight loss) 7.5 7.5 mg subcut WK 10/15/24 10/15/24 mg/0.5 mL subcutaneous pen injector (Zepbound) trazodone 50 mg tablet 50 - 100 mg PO HS PRN Sleep 10/15/24 10/15/24 ziprasidone HCl 80 mg capsule 80 mg PO QAM 10/15/24 10/15/24 acetaminophen 500 mg tablet 500 mg PO Q6H PRN MILD PAIN OR 10/16/24 10/16/24 FEVER >38C/100.5F dimenhydrinate 50 mg chewable 50 mg PO QAM 10/16/24 10/16/24 tablet (Dramamine) ibuprofen 600 mg tablet 600 mg PO Q6 PRN Pain 10/16/24 10/16/24 loperamide 2 mg capsule (Imodium 2 mg PO QID PRN Diarrhea 10/16/24 10/16/24 A-D) magnesium oxide 200 mg PO QAM 10/16/24 10/16/24 phenylephrine-acetaminophen 5 1 tab PO UD PRN ALLERGIES 10/16/24 10/16/24 mg-325 mg tablet (Sinus Headache PE) Results & Data (ED) Vital Signs Vital Signs - 24 hr 10/15/24 19:02 10/15/24 19:05 10/15/24 19:06 Temperature 36.5 C Temperature Source Oral Pulse Rate 65 Pulse Rate [Apical] Pulse Rate from SpO2 Sensor Pulse Rhythm [Apical] Pulse Strength [Apical] Respiratory Rate 16 Respiratory Effort / Characteristics Non-Labored Spontaneous Respiratory Depth Normal Respiratory Pattern Regular Blood Pressure 103/74 Blood Pressure [Right Arm] Blood Pressure Mean 83 Blood Pressure Mean [Right Arm] Pulse Oximetry 98 98 Oxygen Delivery Method Room Air Room Air Room Air Sepsis Recent Fever Within 48 Hours No Sepsis New/Unexplained Change in Mental Status No Sepsis Action Taken by Nursing No Action Required 10/15/24 19:09 10/15/24 19:12 10/15/24 20:05 Temperature Temperature Source Pulse Rate 60 66 Pulse Rate [Apical] 66 Pulse Rate from SpO2 Sensor Pulse Rhythm [Apical] Regular Pulse Strength [Apical] Normal Respiratory Rate 16 18 Respiratory Effort / Characteristics Non-Labored Respiratory Depth Normal Respiratory Pattern Regular Blood Pressure 103/74 Blood Pressure [Right Arm] 95/60 L Blood Pressure Mean 83 Blood Pressure Mean [Right Arm] 71 Pulse Oximetry 94 94 Oxygen Delivery Method Room Air Sepsis Recent Fever Within 48 Hours Sepsis New/Unexplained Change in Mental Status Sepsis Action Taken by Nursing 10/15/24 21:30 10/15/24 23:01 Temperature Temperature Source Pulse Rate 65 65 Pulse Rate [Apical] Pulse Rate from SpO2 Sensor 76 Pulse Rhythm [Apical] Pulse Strength [Apical] Respiratory Rate 16 Respiratory Effort / Characteristics Respiratory Depth Respiratory Pattern Blood Pressure 103/52 L Blood Pressure [Right Arm] Blood Pressure Mean 69 Blood Pressure Mean [Right Arm] Pulse Oximetry 93 Oxygen Delivery Method Sepsis Recent Fever Within 48 Hours Sepsis New/Unexplained Change in Mental Status Sepsis Action Taken by Nursing Laboratory Data 10/15/24 19:55 10/15/24 19:55 Lab Results 10/15/24 10/15/24 10/15/24 Range/Units 19:55 21:05 21:53 WBC 11.30 H (4.8-10.8) K/ul RBC 5.57 H (4.20-5.40) M/uL Hgb 16.2 H (12.0-16.0) g/dl Hct 47.9 H (37.0-47.0) % MCV 86.0 (80.0-100.0) fL MCH 29.1 (25.0-34.0) pg MCHC 33.8 (32.0-36.0) g/dL RDW Std Deviation 43.1 (36.4-46.3) fL RDW Coeff of Jesus 13.5 (11.5-14.5) % Plt Count 229 (130-400) K/uL MPV 10.3 (9.4-12.4) fL Immature Gran % (Auto) 0.4 % Neut % (Auto) 56.5 % Lymph % (Auto) 34.0 % Haralson % (Auto) 6.5 % Eos % (Auto) 1.4 % Baso % (Auto) 1.2 % Neut # (Auto) 6.39 (1.40-6.50) K/uL Lymph # (Auto) 3.84 H (1.20-3.40) K/uL Haralson # (Auto) 0.74 H (0.11-0.59) K/uL Eos # (Auto) 0.16 (0.00-0.50) K/uL Baso # (Auto) 0.13 (0.00-0.20) K/uL Immature Gran # (Auto) 0.04 (0.01-0.20) K/uL D-Dimer 1550 H* (0-500) ug/L FEU Sodium 139 (136-145) mmol/L Potassium 4.4 (3.5-5.1) mmol/L Chloride 105 (98-107) mmol/L Carbon Dioxide 26 (21-32) mmol/L Anion Gap 8 (3-11) BUN 18 (6-23) mg/dl Creatinine 1.13 (0.6-1.2) mg/dl Est Cr Clr Drug Dosing 64.8 ml/min eGFR 60.39 BUN/Creatinine Ratio 15.9 (10-20) Glucose 74 (70-99(Fasting)) mg/dl Calcium 9.6 (8.6-10.3) mg/dl Total Bilirubin 0.5 (0.2-1.0) mg/dl AST 21 (13-39) U/L ALT 13 (7-52) U/L Alkaline Phosphatase 65 (34-104) U/L Troponin I High Sens 3.0 3.7 2.7 (0-14) pg/ml Total Protein 7.2 (6.0-8.3) gm/dl Albumin 4.3 (3.4-5.0) gm/dl Globulin 2.9 (2.5-4.0) gm/dl Albumin/Globulin Ratio 1.5 (0.9-2) Lipase 29 (11-82) U/L Administered Medications Sodium Chloride (Nss) 1,000 mls @ 75 mls/hr IV .[id number] STA Stop: 10/16/24 12:38 Last Admin: 10/15/24 23:49 Dose: 75 mls/hr Documented By: JIL Discontinued Medications Acetaminophen (Acetaminophen 325 Mg Tab) 650 mg PO NOW STA Stop: 10/15/24 21:58 Last Admin: 10/15/24 22:02 Dose: 650 mg Documented By: PABLO Heparin Sodium/Dextrose (Heparin Iv Adult Wt-Based Standard W/ Initial Bolus Protocol) 1 each IV NOW STA; Protocol Stop: 10/15/24 23:09 Last Admin: 10/15/24 23:25 Dose: Not Given Documented By: JIL Sodium Chloride (Nss) 1,000 mls @ 999 mls/hr IV .Q1H1M ONE Stop: 10/15/24 20:05 Last Infusion: 10/15/24 21:09 Dose: Infused Documented By: Admin: 10/15/24 20:05 Dose: 999 mls/hr Documented By: PABLO Ioversol (Optiray 320 125ml) 118 ml IV ONCE ONE Stop: 10/15/24 21:29 Last Admin: 10/15/24 21:28 Dose: 118 ml Documented By: CRISTINE Ketorolac Tromethamine (Ketorolac Tromethamine 15 Mg/Ml Vial) 15 mg IV NOW ONE Stop: 10/15/24 21:58 Last Admin: 10/15/24 22:02 Dose: 15 mg Documented By: PABLO Nicotine (Nicotine 21 Mg/24 Hr Tdsy) 1 patch TD ONE STA Stop: 10/15/24 23:37 Last Admin: 10/15/24 23:47 Dose: 1 patch Documented By: JIL Imaging Data Radiologist's Impression: Chest X-Ray 10/15/24 19:05 EXAM: Portable AP chest radiograph TECHNIQUE: AP portable radiograph of the chest was obtained. INDICATION: Chest pain Comparison: None FINDINGS: LINES and TUBES: None CARDIOVASCULAR: Cardiac silhouette is mildly enlarged in size. LUNGS/PLEURA: Mild pulmonary vascular congestion. No focal consolidation identified. No significant pleural fluid. No discernible pneumothorax. OSSEOUS/OTHER: No displaced acute osseous process identified. ORIF of the right clavicle with plate and screws. IMPRESSION: Mild congestive changes of the cardiovascular system. Electronically signed by Cruz King 10-15-2024 7:58 PM Chest CTA 10/15/24 20:48 CR Exam(s): CTA CHEST IV Amt: 118 cc opti 320 EXAM: CT Angiography Chest With Intravenous Contrast CLINICAL HISTORY: Reason for exam: PE. TECHNIQUE: Axial computed tomographic angiography images of the chest with intravenous contrast. CTDI is 27.81 mGy and DLP is 821.68 mGy-cm. Automated exposure control was utilized for the study. A dose lowering technique was utilized adhering to the principles of ALARA. MIP reconstructed images were created and reviewed. COMPARISON: No relevant prior studies available. FINDINGS: Pulmonary arteries: There is a partially occlusive pulmonary embolus involving a right upper lobe subsegmental pulmonary artery. Aorta: No acute findings. No thoracic aortic aneurysm. Lungs: Diffuse changes COPD. Right lower lobe atelectasis. No mass. Pleural space: Unremarkable. No significant effusion. No pneumothorax. Heart: Unremarkable. No cardiomegaly. No significant pericardial effusion. No evidence of RV dysfunction. Bones/joints: No acute fracture. No dislocation. Soft tissues: Unremarkable. Lymph nodes: Unremarkable. No enlarged lymph nodes. IMPRESSION: Partially occlusive subsegmental right upper lobe pulmonary embolus. Communications: Call Doctor Pulmonary Embolism Electronically signed by: Pio De La Torre MD 10/15/24 23:04 PM Discharge Plan Visit Data Chief Complaint: Chest Pain ED Provider: Pio Rosen Discharge Problem: Pulmonary embolism, Chest pain, Shortness of breath Condition: Fair Forms Stand Alone Forms: My [facility] [address] Prescriptions Prescriptions: No Action Zepbound 7.5 mg/0.5 mL pen injector 7.5 mg SUBCUT WK Rx Instructions: TUESDAYS ziprasidone HCl 80 mg capsule 80 mg PO QAM pregabalin 25 mg capsule 25 mg PO AMHS famotidine [Heartburn Relief (famotidine)] 10 mg tablet 10 mg PO AMHS sulindac 200 mg tablet 200 mg PO AMHS sumatriptan succinate 50 mg tablet 50 mg PO UD MDD 2 DOSES IN 24 HOURS Rx Instructions: TAKE 1 TABLET AT ONSET OF MIGRAINE MAY REPEAT IN 2 HOURS trazodone 50 mg tablet 50 - 100 mg PO HS PRN (Reason: Sleep) lamotrigine 100 mg tablet 100 mg PO HS albuterol sulfate 90 mcg/actuation HFA aerosol inhaler 2 puff INHALATION Q4 PRN (Reason: DYSPNEA OR WHEEZING) fluticasone propionate 50 mcg/actuation spray,suspension 2 spray INTRANASAL QAM hydroxyzine HCl 25 mg tablet 75 mg PO HS nystatin [Klayesta] 100,000 unit/gram powder 1 applic TOPICAL TID PRN (Reason: UNDER BREAST ITCHY) acetaminophen 500 mg Tablet 500 mg PO Q6H PRN (Reason: MILD PAIN OR FEVER >38C/100.5F) ibuprofen 600 mg Tablet 600 mg PO Q6 PRN (Reason: Pain) magnesium oxide 200 mg magnesium Tablet 200 mg PO QAM Dramamine 50 mg Tablet,Chewable 50 mg PO QAM loperamide [Imodium A-D] 2 mg Capsule 2 mg PO QID PRN (Reason: Diarrhea) Sinus Headache PE 5-325 mg Tablet 1 tab PO UD PRN (Reason: ALLERGIES) Referrals Referrals: Kimberlyn Lynch PA-C [Outside Practitioners] - Discharge Problem: Pulmonary embolism Qualifiers: Pulmonary embolism type: unspecified Chronicity: acute Acute cor pulmonale presence: unspecified Qualified Code(s): I26.99 - Other pulmonary embolism without acute cor pulmonale Chest pain Qualifiers: Chest pain type: unspecified Qualified Code(s): R07.9 - Chest pain, unspecified
--- NOTE | 2024-10-15 19:58 | XRay Report ---
EXAM: Portable AP chest radiograph TECHNIQUE: AP portable radiograph of the chest was obtained. INDICATION: Chest pain Comparison: None FINDINGS: LINES and TUBES: None CARDIOVASCULAR: Cardiac silhouette is mildly enlarged in size. LUNGS/PLEURA: Mild pulmonary vascular congestion. No focal consolidation identified. No significant pleural fluid. No discernible pneumothorax. OSSEOUS/OTHER: No displaced acute osseous process identified. ORIF of the right clavicle with plate and screws. IMPRESSION: Mild congestive changes of the cardiovascular system. Electronically signed by Cruz King 10-15-2024 7:58 PM
[2024-10-15] MEDS: SODIUM CHLORIDE 0.9% 1,000 ML IV ONE (20:05)
[2024-10-15 20:09] LABS: Hematocrit (blood only) 47.9 % (37.0-47.0); Hemoglobin 16.2 g/dl (12.0-16.0); Immature Granulocytes # (auto) 0.04 K/uL (0.01-0.20); Immature Granulocytes % (auto) 0.4 %; Mean Corpuscular Hemoglobin 29.1 pg (25.0-34.0); Mean Corpuscular Volume 86.0 fL (80.0-100.0); Platelet Count 229 K/uL (130-400); RDW Standard Deviation 43.1 fL (36.4-46.3); Red Blood Count 5.57 M/uL (4.20-5.40); White Blood Count 11.30 K/ul (4.8-10.8)
[2024-10-15 20:35] LABS: Albumin Globulin Ratio 1.5 (0.9-2); Anion Gap 8.0 (3-11); Bilirubin,Total 0.5 mg/dl (0.2-1.0); Globulin 2.9 gm/dl (2.5-4.0); Lipase 29.0 U/L (11-82); Sodium 139.0 mmol/L (136-145); Total Protein 7.2 gm/dl (6.0-8.3)
[2024-10-15 20:37] LABS: Alanine Aminotransferase 13.0 U/L (7-52); Alkaline Phosphatase 65.0 U/L (34-104); Blood Urea Nitrogen 18.0 mg/dl (6-23); Calcium 9.6 mg/dl (8.6-10.3); Carbon Dioxide 26.0 mmol/L (21-32); Chloride 105.0 mmol/L (98-107); Creatinine Clr Calc Pharmacy 64.8 ml/min; Glucose 74.0 mg/dl (70-99(Fasting)); Potassium 4.4 mmol/L (3.5-5.1)
[2024-10-15] MEDS: OPTIRAY 320 125ml IV ONE (21:28)
[2024-10-15] MEDS: ACETAMINOPHEN 325 MG TAB PO STA (22:02)
[2024-10-15] MEDS: KETOROLAC TROMETHAMINE 15 MG/ML VIAL IV ONE (22:02)
--- NOTE | 2024-10-15 23:05 | CT Scan Report ---
Exam(s): CTA CHEST IV Amt: 118 cc opti 320 EXAM: CT Angiography Chest With Intravenous Contrast CLINICAL HISTORY: Reason for exam: PE. TECHNIQUE: Axial computed tomographic angiography images of the chest with intravenous contrast. CTDI is 27.81 mGy and DLP is 821.68 mGy-cm. Automated exposure control was utilized for the study. A dose lowering technique was utilized adhering to the principles of ALARA. MIP reconstructed images were created and reviewed. COMPARISON: No relevant prior studies available. FINDINGS: Pulmonary arteries: There is a partially occlusive pulmonary embolus involving a right upper lobe subsegmental pulmonary artery. Aorta: No acute findings. No thoracic aortic aneurysm. Lungs: Diffuse changes COPD. Right lower lobe atelectasis. No mass. Pleural space: Unremarkable. No significant effusion. No pneumothorax. Heart: Unremarkable. No cardiomegaly. No significant pericardial effusion. No evidence of RV dysfunction. Bones/joints: No acute fracture. No dislocation. Soft tissues: Unremarkable. Lymph nodes: Unremarkable. No enlarged lymph nodes. IMPRESSION: Partially occlusive subsegmental right upper lobe pulmonary embolus. Communications: Call Doctor Pulmonary Embolism Electronically signed by: Pio De La Torre MD 10/15/24 23:04 PM
[2024-10-15] MEDS ORDERED: HEPARIN SOD (PORCINE) 1000 UNIT/ML IV ONE (23:23)
[2024-10-15] MEDS: Heparin IV Adult Wt-Based Standard w/ INITIAL Bolus Protocol IV STA (23:25)
[2024-10-15] MEDS ORDERED: HEPARIN 25000 UNIT/500 ML D5W 25,000 UNITS/500 ML BAG IV SCH (23:30)
--- NOTE | 2024-10-15 23:38 | History & Physical Report ---
Date of Service October 15, 2024 Assessment & Plan (1) Pulmonary embolism: Plan: Assessment and plan below following discussion of case with ED provider and reviewing patient history/pertinent normal/abnormal diagnostic test results. Acute PE Initial event without obvious provoking factors Rule out LE DVT as source of clot Worsening chronic headache symptoms rule out brain tumor left breast lobulated density on imaging, documented fibroglandular densities on outpatient mammogram last month hx COPD/asthma, lung status at baseline prediabetes, hemoglobin A1c of 5.3 from last year schizoaffective disorder/mood disorder, at baseline past alcohol abuse as per records ongoing tobacco abuse Admit to med/tele Hypercoag workup Weight-based Lovenox after hypercoag labs drawn LE venous Dopplers rule out DVT Defer discussion regarding home anticoagulation to AM provider. Brain MRI Nicotine patch DVT prophylaxis Lovenox Full code Text document was generated using indoo[employer]rs recognition software. It may contain grammatical or spelling errors. Kindly contact undersigned for clarification of any documentation item in question. History of Present Illness Chief Complaint: Chest pain, SOB Primary Care Provider: Keshawn Booker MD History obtained from patient and records. Medical history significant for COPD/asthma, organic brain syndrome as per records, prediabetes, RLS, schizoaffective disorder, mood disorder, past alcohol abuse as per records, ongoing tobacco abuse. Last confinement 2018 under Psychiatry service for depression. Patient with chest heaviness and SOB last 2 days. Diffuse achiness and worsening headache symptoms. Has not gone for outpatient brain MRI recommended by [facility] neurologist on outpatient evaluation last month. Usual leg swelling. Vague abdominal pain. No unusual weight loss. No recent illness resulting in immobility/prolonged vehicle travel. No prior history/known family history of blood clots. Medical History as above Surgical History : D&C, dental surgery, tonsillectomy, cholecystectomy, clavicle fracture surgery, section, BTL Family History : No blood clots; lung cancer, DM, heart disease, dementia, heart disease, tremors Personal/Social history : 1 pack daily, past alcohol use as per records, disabled Allergies Allergy/AdvReac Type Severity Reaction Status Date / Time No Known Allergies Allergy Verified 08/22/18 16:50 Home Medications Medication Instructions Recorded Confirmed Type albuterol sulfate 90 mcg/actuation 2 puff inhalation Q4 PRN DYSPNEA 10/15/24 10/15/24 History aerosol inhaler OR WHEEZING famotidine 10 mg tablet (Heartburn 10 mg PO AMHS 10/15/24 10/15/24 History Relief (famotidine)) fluticasone propionate 50 2 spray intranasal QAM 10/15/24 10/15/24 History mcg/actuation nasal spray,suspension hydroxyzine HCl 25 mg tablet 75 mg PO HS 10/15/24 10/15/24 History lamotrigine 100 mg tablet 100 mg PO HS 10/15/24 10/15/24 History nystatin 100,000 unit/gram topical 1 applic topical TID PRN UNDER 10/15/24 10/16/24 History powder (Klayesta) BREAST ITCHY pregabalin 25 mg capsule 25 mg PO AMHS 10/15/24 10/15/24 History sulindac 200 mg tablet 200 mg PO AMHS 10/15/24 10/15/24 History sumatriptan succinate 50 mg tablet 50 mg PO UD 10/15/24 10/15/24 History tirzepatide (weight loss) 7.5 7.5 mg subcut WK 10/15/24 10/15/24 History mg/0.5 mL subcutaneous pen injector (Zepbound) trazodone 50 mg tablet 50 - 100 mg PO HS PRN Sleep 10/15/24 10/15/24 History ziprasidone HCl 80 mg capsule 80 mg PO QAM 10/15/24 10/15/24 History acetaminophen 500 mg tablet 500 mg PO Q6H PRN MILD PAIN OR 10/16/24 10/16/24 History FEVER >38C/100.5F dimenhydrinate 50 mg chewable 50 mg PO QAM 10/16/24 10/16/24 History tablet (Dramamine) ibuprofen 600 mg tablet 600 mg PO Q6 PRN Pain 10/16/24 10/16/24 History loperamide 2 mg capsule (Imodium 2 mg PO QID PRN Diarrhea 10/16/24 10/16/24 History A-D) magnesium oxide 200 mg PO QAM 10/16/24 10/16/24 History phenylephrine-acetaminophen 5 1 tab PO UD PRN ALLERGIES 10/16/24 10/16/24 History mg-325 mg tablet (Sinus Headache PE) Past Med/Surg History Problem List (Updated 10/16/24 @ 00:16 by Pio Rosen DO) Shortness of breath (Acute) Chest pain (Acute) Pulmonary embolism (Acute) Mood disorder (Acute) Non compliance w medication regimen (Acute) Bipolar disorder (manic depression) Alcohol intoxication (Acute) Asthma (Chronic) Stomach problems (Chronic) Cramping affecting , antepartum Pneumonitis (Acute) Pneumonitis (Acute) Medical History Asthma Bipolar disorder (manic depression) Bronchitis Paranoid schizophrenia Pneumonia Postconcussion syndrome Stomach problems Surgical History H/O tubal ligation S/P S/P cholecystectomy Family History Other Cancer Diabetes Heart disease Hypertension Seizures Social History Smoking Status: Current every day smoker Tobacco Type: Cigarettes Cigarettes Per Day: one pack per day; Hx Alcohol Use: No Hx Substance Use: No Preferred Language: Spanish Communication Ability: Effective International Trade Analyst Required: No Beliefs That Will Affect Care: None Current Living Situation: Alone Feels Safe at Home: Yes Safety Concerns: Feels Safe At This Time Assistive Devices: None Review of Systems Review of Systems: As per HPI, all other systems reviewed and negative Physical Exam Physical Exam: GENERAL: Comfortable, obese, slightly anxious, no respiratory distress SKIN: Normal color, warm HEENT: [place] palpebral conjunctivae, no ptosis, dry buccal mucosa NECK : Supple, short neck, no tenderness CHEST : Decreased breath sounds, no tenderness HEART : RRR, no obvious murmurs ABDOMEN: Some distention, nontender EXTREMITIES : Bilateral LE swelling, no LE tenderness, palpable pulses, no other conspicuous deformities noted NEUROLOGIC : Coherent, no facial asymmetry, no other gross focality Results & Data Results & Data Vital Signs (Past 12 Hours) Vital Signs Temp Pulse Pulse Resp BP BP Pulse Ox 10/15/24 21:30 65 16 103/52 L 93 10/15/24 20:05 66 18 95/60 L 94 10/15/24 19:12 66 16 103/74 94 10/15/24 19:09 60 10/15/24 19:06 98 10/15/24 19:05 10/15/24 19:02 36.5 C 65 16 103/74 98 O2 Del Method 10/15/24 21:30 10/15/24 20:05 Room Air 10/15/24 19:12 10/15/24 19:09 10/15/24 19:06 Room Air 10/15/24 19:05 Room Air 10/15/24 19:02 Room Air Laboratory Results Laboratory Results WBC 11.30 K/ul (4.8-10.8) H 10/15/24 19:55 RBC 5.57 M/uL (4.20-5.40) H 10/15/24 19:55 Hgb 16.2 g/dl (12.0-16.0) H 10/15/24 19:55 Hct 47.9 % (37.0-47.0) H 10/15/24 19:55 MCV 86.0 fL (80.0-100.0) 10/15/24 19:55 MCH 29.1 pg (25.0-34.0) 10/15/24 19:55 MCHC 33.8 g/dL (32.0-36.0) 10/15/24 19:55 RDW Std Deviation 43.1 fL (36.4-46.3) 10/15/24 19:55 RDW Coeff of Jesus 13.5 % (11.5-14.5) 10/15/24 19:55 Plt Count 229 K/uL (130-400) 10/15/24 19:55 MPV 10.3 fL (9.4-12.4) 10/15/24 19:55 Immature Gran % (Auto) 0.4 % 10/15/24 19:55 Neut % (Auto) 56.5 % 10/15/24 19:55 Lymph % (Auto) 34.0 % 10/15/24 19:55 Marshall % (Auto) 6.5 % 10/15/24 19:55 Eos % (Auto) 1.4 % 10/15/24 19:55 Baso % (Auto) 1.2 % 10/15/24 19:55 Neut # (Auto) 6.39 K/uL (1.40-6.50) 10/15/24 19:55 Lymph # (Auto) 3.84 K/uL (1.20-3.40) H 10/15/24 19:55 Marshall # (Auto) 0.74 K/uL (0.11-0.59) H 10/15/24 19:55 Eos # (Auto) 0.16 K/uL (0.00-0.50) 10/15/24 19:55 Baso # (Auto) 0.13 K/uL (0.00-0.20) 10/15/24 19:55 Immature Gran # (Auto) 0.04 K/uL (0.01-0.20) 10/15/24 19:55 D-Dimer 1550 ug/L FEU (0-500) H* 10/15/24 19:55 Sodium 139 mmol/L (136-145) 10/15/24 19:55 Potassium 4.4 mmol/L (3.5-5.1) 10/15/24 19:55 Chloride 105 mmol/L (98-107) 10/15/24 19:55 Carbon Dioxide 26 mmol/L (21-32) 10/15/24 19:55 Anion Gap 8 (3-11) 10/15/24 19:55 BUN 18 mg/dl (6-23) 10/15/24 19:55 Creatinine 1.13 mg/dl (0.6-1.2) 10/15/24 19:55 Est Cr Clr Drug Dosing 64.8 ml/min 10/15/24 19:55 eGFR 60.39 10/15/24 19:55 BUN/Creatinine Ratio 15.9 (10-20) 10/15/24 19:55 Glucose 74 mg/dl (70-99(Fasting)) 10/15/24 19:55 Calcium 9.6 mg/dl (8.6-10.3) 10/15/24 19:55 Total Bilirubin 0.5 mg/dl (0.2-1.0) 10/15/24 19:55 AST 21 U/L (13-39) 10/15/24 19:55 ALT 13 U/L (7-52) 10/15/24 19:55 Alkaline Phosphatase 65 U/L (34-104) 10/15/24 19:55 Troponin I High Sens 2.7 pg/ml (0-14) 10/15/24 21:53 Total Protein 7.2 gm/dl (6.0-8.3) 10/15/24 19:55 Albumin 4.3 gm/dl (3.4-5.0) 10/15/24 19:55 Globulin 2.9 gm/dl (2.5-4.0) 10/15/24 19:55 Albumin/Globulin Ratio 1.5 (0.9-2) 10/15/24 19:55 Lipase 29 U/L (11-82) 10/15/24 19:55 Impressions Chest X-Ray 10/15/24 19:05 EXAM: Portable AP chest radiograph TECHNIQUE: AP portable radiograph of the chest was obtained. INDICATION: Chest pain Comparison: None FINDINGS: LINES and TUBES: None CARDIOVASCULAR: Cardiac silhouette is mildly enlarged in size. LUNGS/PLEURA: Mild pulmonary vascular congestion. No focal consolidation identified. No significant pleural fluid. No discernible pneumothorax. OSSEOUS/OTHER: No displaced acute osseous process identified. ORIF of the right clavicle with plate and screws. IMPRESSION: Mild congestive changes of the cardiovascular system. Electronically signed by Cruz King 10-15-2024 7:58 PM Chest CTA 10/15/24 20:48 CR Exam(s): CTA CHEST IV Amt: 118 cc opti 320 EXAM: CT Angiography Chest With Intravenous Contrast CLINICAL HISTORY: Reason for exam: PE. TECHNIQUE: Axial computed tomographic angiography images of the chest with intravenous contrast. CTDI is 27.81 mGy and DLP is 821.68 mGy-cm. Automated exposure control was utilized for the study. A dose lowering technique was utilized adhering to the principles of ALARA. MIP reconstructed images were created and reviewed. COMPARISON: No relevant prior studies available. FINDINGS: Pulmonary arteries: There is a partially occlusive pulmonary embolus involving a right upper lobe subsegmental pulmonary artery. Aorta: No acute findings. No thoracic aortic aneurysm. Lungs: Diffuse changes COPD. Right lower lobe atelectasis. No mass. Pleural space: Unremarkable. No significant effusion. No pneumothorax. Heart: Unremarkable. No cardiomegaly. No significant pericardial effusion. No evidence of RV dysfunction. Bones/joints: No acute fracture. No dislocation. Soft tissues: Unremarkable. Lymph nodes: Unremarkable. No enlarged lymph nodes. IMPRESSION: Partially occlusive subsegmental right upper lobe pulmonary embolus. Communications: Call Doctor Pulmonary Embolism Electronically signed by: Pio De La Torre MD 10/15/24 23:[address] head: Normal CT of the head without contrast. CT abdomen pelvis: 1. Overall, non-contrast CT abdomen and pelvis demonstrates normal findings without evidence of acute intra-abdominal pathology. 2. Right minimal pleural reaction, suggesting a mild inflammatory process. 3. Partially visualized lobulated soft tissue density at the right breast with calcific foci, suggestive of fibroadenoma, recommended for dedicated mammography assessment. 4. Mild degenerative changes of the spine and left hip joint as described. Diagnostic Findings EKG as per my interpretation :Rate 60, NSR, normal axis, no ischemia (1) Pulmonary embolism Acute cor pulmonale presence: unspecified Chronicity: acute Pulmonary embolism type: unspecified Qualified Code(s): I26.99 - Other pulmonary embolism without acute cor pulmonale
[2024-10-15] MEDS: NICOTINE 21 MG/24 HR TDSY TD STA (23:47)
[2024-10-15] MEDS: SODIUM CHLORIDE 0.9% 1,000 ML IV STA (23:49)
[2024-10-15] MEDS ORDERED: MELATONIN 3 MG TAB PO PRN (23:58)
[2024-10-16] MEDS ORDERED: PROMETHAZINE 6.25 MG/50.25 ML BAG IV PRN (00:50)
[2024-10-16] MEDS: LORazepam 0.5 MG TAB PO PRN (01:04)
--- NOTE | 2024-10-16 02:08 | CT Scan Report ---
EXAM: CT head/brain wo con CLINICAL HISTORY: worsening bruce TECHNIQUE: Axial non-contrast CT scan of the brain was performed from the skull base to the high parietal region. One of the following dose reduction techniques were utilized for this exam: Automated exposure control, adjustment of the mA and/or kV according to patient size, use of iterative reconstruction. CTDI: , DLP: 2353.13 mGy.cm COMPARISON: No prior studies for comparison. FINDINGS: Brain Parenchyma: The study is partially limited by beam hardening artifacts Normal attenuation of the cerebral hemispheres, cerebellum, and brainstem. No evidence of acute infarct, hemorrhage, or mass effect. No abnormal areas of hypo- or hyperattenuation. Ventricular System: Ventricles are normal in size and configuration. No evidence of hydrocephalus or ventricular enlargement. Subarachnoid Spaces: Normal sulci and cisterns. No evidence of subarachnoid hemorrhage or extra-axial fluid collections. Mildly prominent cisterna magna. Cerebellum and Brainstem: No masses, lesions, or areas of abnormal density. Orbits: Normal appearance of the globes, optic nerves, and extraocular muscles. No evidence of orbital masses or abnormal density. Sinuses: Clear paranasal sinuses. No evidence of sinusitis or mucosal thickening. Mastoid Air Cells: Clear mastoid air cells. No evidence of mastoiditis. Skull: Normal skull morphology. IMPRESSION: Normal CT of the head without contrast. Electronically signed by Daron Arias 10-16-2024 02:08 AM
--- NOTE | 2024-10-16 02:29 | CT Scan Report ---
EXAM: CT abd pelvis wo con CLINICAL HISTORY: abdominal pain TECHNIQUE: Non-contrast CT of the abdomen and pelvis was performed, with the following protocol: axial images, and reconstructed coronal and sagittal images. No intravenous contrast was administered. One of the following dose reduction techniques was utilized for this exam: Automated exposure control, adjustment of the mA and/or kV according to patient size, and use of iterative reconstruction. DLP: 2353.13 mGy.cm COMPARISON: No prior studies available for comparison. FINDINGS: Abdomen: Liver: Normal in size, shape, and density. No focal lesions, cysts, or masses were identified. Gallbladder and Biliary System: The gallbladder is not visualized. Cholecystectomy clips are seen. No dilatation of the intra- or extra-hepatic bile ducts. Pancreas: The pancreatic head, body, and tail are visualized and appear normal in size and density. No pancreatic masses or calcifications were noted. Spleen: Normal in size, shape, and density. No splenic lesions or masses were identified. Kidneys and Adrenal Glands: Both kidneys are normal in size, shape, and position. Cortical thickness is within normal limits. There is evidence of contrast material within the collecting system of both kidneys (likely due to previous recent examination), which interferes with the assessment of the possibility of renal stones. No hydronephrosis. A cortical cyst is seen at the right kidney measuring 17mm. Adrenal glands are unremarkable. Appendix: The appendix is normal in size without periappendiceal fat stranding and without an appendicolith. No evidence of appendiceal abscess or perforation. Pelvis: Urinary Bladder: Collapsed in the current study. Contrast material is seen in its lumen. Uterus: Normal in size and contour. No masses or abnormal thickening. Ovaries: No gross abnormalities noted. Peritoneal and Retroperitoneal Structures: No free fluid or abnormal fluid collections were identified within the abdomen or pelvis. No lymphadenopathy was noted. Bowel: The visualized bowel loops are normal in caliber and appearance. No evidence of bowel obstruction or wall thickening. Bones and soft tissues : Degenerative changes of the thoracic and lumbar spine. Mild spondylolisthesis of LV3 over LV4. Degenerative subarticular lytic changes at the left acetabulum. Benign-looking lytic focus at the anterior aspect of the left femoral head, likely part of degenerative changes versus a synovial herniation pit. No fractures or abnormal masses were identified. Mild edema is seen in the subcutaneous tissue of the back. Basal chest scans: Posterior basal atelectatic bands, more on the right side, associated with right minimal pleural reaction, suggesting a mild inflammatory process. Partially visualized lobulated soft tissue density at the right breast with calcific foci, suggestive of fibroadenoma, recommended for dedicated mammography assessment. IMPRESSION: 1. Overall, non-contrast CT abdomen and pelvis demonstrates normal findings without evidence of acute intra-abdominal pathology. 2. Right minimal pleural reaction, suggesting a mild inflammatory process. 3. Partially visualized lobulated soft tissue density at the right breast with calcific foci, suggestive of fibroadenoma, recommended for dedicated mammography assessment. 4. Mild degenerative changes of the spine and left hip joint as described. Electronically signed by Daron Arias 10-16-2024 02:22 AM
[2024-10-16] MEDS: ENOXAPARIN 100 MG/1ML SYR SQ ONE (02:51)
[2024-10-16] MEDS: lamoTRIgine 100 MG TAB PO SCH (02:53)
--- NOTE | 2024-10-16 03:57 | Ultrasound Report ---
EXAM: US venous doppler LE BI CLINICAL HISTORY: pe TECHNIQUE: Ultrasound examination of bilateral lower extremity veins was performed in real time and duplex. One or more of the following were performed- spectral analysis, resistive index, waveform analysis, and pulsed Doppler. COMPARISON: None. FINDINGS: Normal phasic, non-pulsatile and spontaneous flow is noted in bilateral GSV, common femoral, superficial femoral, popliteal , anterior tibial, posterior tibial and peroneal veins. Visualized veins of both lower extremities demonstrate normal compressibility. No sonographic evidence of acute deep vein thrombosis (DVT) is detected in the visualized veins of both lower extremities. Compression and Augmentation: All evaluated veins compress fully with applied transducer pressure. Augmentation of venous flow is noted with distal compression. Additional Findings: No evidence of intraluminal thrombus. IMPRESSION: No sonographic evidence of acute DVT detected in bilateral lower extremity veins, at the time of examination. Disclaimer: DVT could be missed early in the disease when clot burden is minimal. For patients with moderate and high pretest probability of DVT and negative ultrasound, the [employer] clinical guidelines recommend testing with a D-dimer assay or repeat ultrasound in 5-7 days. If symptoms worsen, the Society of radiologists in ultrasound recommends repeating ultrasound even earlier. Electronically signed by Daron Arias 10-16-2024 03:57 AM
[2024-10-16] MEDS: LORazepam 0.5 MG TAB PO STA (04:12)
[2024-10-16 04:29] LABS: Hematocrit (blood only) 43.1 % (37.0-47.0); Hemoglobin 14.3 g/dl (12.0-16.0); Immature Granulocytes # (auto) 0.03 K/uL (0.01-0.20); Immature Granulocytes % (auto) 0.3 %; Mean Corpuscular Hemoglobin 28.5 pg (25.0-34.0); Mean Corpuscular Volume 86.0 fL (80.0-100.0); Platelet Count 205 K/uL (130-400); RDW Standard Deviation 42.5 fL (36.4-46.3); Red Blood Count 5.01 M/uL (4.20-5.40); White Blood Count 9.31 K/ul (4.8-10.8)
[2024-10-16] MEDS: GADOBUTROL 65ML VIAL IV ONE (04:40)
[2024-10-16 04:44] LABS: Anion Gap 6.0 (3-11); Blood Urea Nitrogen 21.0 mg/dl (6-23); Calcium 8.5 mg/dl (8.6-10.3); Carbon Dioxide 22.0 mmol/L (21-32); Chloride 111.0 mmol/L (98-107); Creatinine Clr Calc Pharmacy 87.6 ml/min; Glucose 83.0 mg/dl (70-99(Fasting)); Potassium 3.8 mmol/L (3.5-5.1); Sodium 139.0 mmol/L (136-145)
--- NOTE | 2024-10-16 05:47 | Magnetic Resonance Report ---
EXAM: MR brain wo/w con CLINICAL HISTORY: worsening bruce TECHNIQUE: MRI of the brain was performed with and without intravenous contrast administration. 9 cc gadavist intravenous contrast was administered. Sequences obtained include pre-contrast and post-contrast T1-weighted, T2-weighted, FLAIR (Fluid-Attenuated Inversion Recovery), DWI (Diffusion-Weighted Imaging), and ADC (Apparent Diffusion Coefficient) sequences. COMPARISON: Comparison is made with prior imaging studies dated 10/16/2024. FINDINGS: Brain Parenchyma: No evidence of acute infarction or hemorrhage. Mancuso-white matter differentiation is preserved. No abnormal signal intensity lesions were identified. Post-Contrast Findings: No abnormal enhancement of the brain parenchyma or meninges. Ventricles and Sulci: The ventricular system is within normal limits without evidence of hydrocephalus. Sulci and cisternal spaces are age-appropriate. Brainstem and Cerebellum: Normal appearance of the brainstem and cerebellum without focal lesions or abnormal enhancement. Vessels: Intracranial vessels appear normal without evidence of vascular malformations or aneurysms. Skull and Calvarium: No evidence of skull vault lesions or abnormal marrow signal within the calvarium. IMPRESSION: 1. Normal brain parenchyma and structures. 2. No evidence of acute intracranial pathology or abnormal contrast enhancement. 3. No interval change since the prior study. Electronically signed by Daron Arias 10-16-2024 05:46 AM
[2024-10-16] MEDS: REMOVE NICODERM PATCH SCH (08:40)
[2024-10-16] MEDS: NICOTINE 21 MG/24 HR TDSY TD SCH (08:40)
[2024-10-16] MEDS: FAMOTIDINE 10 MG TABLET PO SCH (08:42)
[2024-10-16] MEDS: PREGABALIN 25 MG CAP PO SCH (08:44)
[2024-10-16 09:45] LABS: Base Excess VBG -2.5 mEq/L; HCO3 VBG 23 mmol/L; Oxygen Saturation VBG 82.1 %; PCO2 VBG 39 mmHg (38-50); PO2 VBG 50 mmHg; pH VBG 7.37 (7.36-7.41)
[2024-10-16] MEDS ORDERED: ENOXAPARIN 100 MG/1ML SYR SQ SCH ×2 (10:30→16:00)
--- NOTE | 2024-10-16 10:58 | Electrocardiogram Report ---
Test Reason : Blood Pressure : */* mmHG Vent. Rate : 61 BPM Atrial Rate : 61 BPM P-R Int : 132 ms QRS Dur : 78 ms QT Int : 438 ms P-R-T Axes : 63 32 27 degrees QTcB Int : 440 ms Normal sinus rhythm Normal ECG When compared with ECG of 02-May-2018 12:04, No significant change was found Confirmed by Steve Alatorre ([id number]) on 10/16/2024 10:57:41 AM Referred By: REFERRED SELF Confirmed By: Steve Alatorre
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
[2024-10-16 11:56] LABS: Appearance Urine Clear (Clear); Glucose Urine UA Negative (Negative)
[2024-10-16] MEDS ORDERED: MECLIZINE HCL 25 MG TAB PO PRN (12:07)
[2024-10-16 12:28] LABS: Amphetamines+Metham, Urine Neg (Neg); MDMA (Ecstacy), Urine Neg (Neg); Marijuana, Urine Neg (Neg)
[2024-10-16] MEDS: APIXABAN 5 MG TABLET PO SCH (12:43)
[2024-10-16] MEDS: ENOXAPARIN 100 MG/1ML SYR SQ STA (19:20)
[2024-10-16] MEDS ORDERED: MECLIZINE HCL 25 MG TAB PO SCH (21:00)
[2024-10-16] MEDS ORDERED: lamoTRIgine 100 MG TAB PO SCH (21:00)
[2024-10-16] MEDS: ACETAMINOPHEN 325 MG TAB PO PRN (21:01)
[2024-10-16 23:26] VITALS: RESP 18
[2024-10-17 07:08] LABS: Hematocrit (blood only) 44.7 % (37.0-47.0); Hemoglobin 15.3 g/dl (12.0-16.0); Mean Corpuscular Hemoglobin 29.5 pg (25.0-34.0); Mean Corpuscular Volume 86.1 fL (80.0-100.0); Platelet Count 192 K/uL (130-400); RDW Standard Deviation 42.8 fL (36.4-46.3); Red Blood Count 5.19 M/uL (4.20-5.40); White Blood Count 7.16 K/ul (4.8-10.8)
[2024-10-17 07:31] LABS: Anion Gap 7.0 (3-11); Blood Urea Nitrogen 15.0 mg/dl (6-23); Calcium 8.9 mg/dl (8.6-10.3); Carbon Dioxide 22.0 mmol/L (21-32); Chloride 111.0 mmol/L (98-107); Creatinine Clr Calc Pharmacy 86.4 ml/min; Glucose 77.0 mg/dl (70-99(Fasting)); Potassium 4.3 mmol/L (3.5-5.1); Sodium 140.0 mmol/L (136-145)
[2024-10-17 08:21] VITALS: PULSE 60; TEMP 97.2; O2SAT 97
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
[2024-10-17] MEDS: KETOROLAC TROMETHAMINE 15 MG/ML VIAL IV ONE (09:27)
[2024-10-17] MEDS: FLUCONAZOLE 50 MG TAB PO ONE (09:28)
[2024-10-17 09:38] VITALS: BP 109/76
[2024-10-17] MEDS ORDERED: APIXABAN 5 MG TABLET PO SCH (21:00)
== END 2024-10-17 10:45 | disposition home or self-care (01) | DRG 175 ==
LOC: ED 18:58 → 2N 23:40